=== PATIENT | female | born 1955 | race Hispanic/Latino ===

== ENCOUNTER → 2017-09-21 15:20 | Outpatient (CLI) | payer OTHER, SELFPAY ==
--- NOTE | 2017-09-21 | DI.MG.S_ITS ---
BILATERAL DIGITAL SCREENING MAMMOGRAM 3D/2D WITH CAD: 09/21/2017 CLINICAL: Routine screening. Comparison is made to exams dated: 09/08/2016 mammogram, 08/28/2014 mammogram, and 08/01/2013 mammogram - [facility]. There are scattered fibroglandular elements in both breasts. Current study was also evaluated with a Computer Aided Detection (CAD) system. There are benign vascular calcifications in both breasts. There is a mole marker on the right breast. No significant masses, calcifications, or other findings are seen in either breast. There has been no significant interval change. IMPRESSION: BENIGN There is no mammographic evidence of malignancy. A 1 year screening mammogram is recommended. This exam was interpreted at Station ID: [id number]. NOTE: For mammograms, a report in lay terms will be sent to the patient. Approximately 15% of breast malignancies will not be visualized mammographically. In the management of a palpable breast mass, a negative mammogram must not discourage biopsy of a clinically suspicious lesion. Electronically Signed By: Shemar ceron/breanne:09/21/2017 19:25:03 letter sent: Normal Exam ACR BI-RADS Category 2: Benign Finding(s) 3342F
== END ==
PROVIDERS: PCP Family Medicine; Visit Provider Family Medicine
DX: Z12.31 Encounter for screening mammogram for malignant neoplasm of breast (principal)
CPT/HCPCS: 77063; 77067

== ENCOUNTER → 2018-09-23 07:50 | Outpatient (CLI) | payer OTHER, SELFPAY ==
--- NOTE | 2018-09-23 | DI.MG.S_ITS ---
BILATERAL DIGITAL SCREENING MAMMOGRAM 3D/2D WITH CAD: 09/23/2018 CLINICAL: Routine screening. Comparison is made to exams dated: 09/21/2017 mammogram, 09/08/2016 mammogram, and 08/28/2014 mammogram - [facility]. There are scattered fibroglandular elements in both breasts. Current study was also evaluated with a Computer Aided Detection (CAD) system. There are benign vascular calcifications in both breasts. No significant masses, calcifications, or other findings are seen in either breast. There has been no significant interval change. IMPRESSION: There is no mammographic evidence of malignancy. A 1 year screening mammogram is recommended. This exam was interpreted at Station ID: [id number]. NOTE: For mammograms, a report in lay terms will be sent to the patient. Approximately 15% of breast malignancies will not be visualized mammographically. In the management of a palpable breast mass, a negative mammogram must not discourage biopsy of a clinically suspicious lesion. Electronically Signed By: Mabel davila/breanne:09/23/2018 08:50:19 letter sent: Normal Exam ACR BI-RADS Category 2: Benign Finding(s) 3342F
== END ==
PROVIDERS: PCP Family Medicine; Visit Provider Family Medicine
DX: Z12.31 Encounter for screening mammogram for malignant neoplasm of breast (principal)
CPT/HCPCS: 77063; 77067

== ENCOUNTER → 2019-07-03 08:29 | Outpatient (CLI) | payer OTHER, SELFPAY ==
--- NOTE | 2019-07-03 08:33 | DI.RAD.S_ITS ---
PROCEDURE: FL SHOULDER INJECTION MR/CT LT INDICATIONS: Strain of muscle(s) and tendon(s) of the rotator cuff TECHNIQUE: The indications, alternatives, benefits, risks, and complications of the procedure were explained to the patient. Written informed consent was obtained and placed in the chart. The shoulder was examined fluoroscopically and a site for needle placement chosen for entry into the glenohumeral joint from an anterior approach. The skin was prepped and draped in a sterile fashion, and 1% lidocaine infiltrated from skin down to joint capsule. A spinal needle was inserted into the glenohumeral joint, and a small amount of iodinated contrast media injected to confirm intra-articular placement of the needle tip. This was followed by approximately 12 mL dilute solution of a gadolinium containing MR contrast agent. The needle was removed and a dressing was applied. The patient was given postprocedural instructions and sent to the MR suite for MR imaging. FINDINGS: A single fluoroscopic spot image demonstrates intra-articular location of injected iodinated contrast. IMPRESSION: Successful fluoroscopically guided administration of dilute Gadolinium solution into the shoulder joint for MR arthrogram. Dictated by: Frances Hubbard M.D. on 07/03/2019 at 9:42 Approved by: Frances Hubbard M.D. on 07/03/2019 at 9:42
--- NOTE | 2019-07-03 08:33 | DI.MRI.S_ITS ---
PROCEDURE: MR SHOULDER LT W CON INDICATIONS: Strain of muscle(s) and tendon(s) of the rotator c TECHNIQUE: After the administration of 12 mL of dilute intra-articular Gadolinium contrast, oblique coronal T1 and T2 spin echo with fat saturation, oblique sagittal T1 spin echo with and without fat saturation, oblique sagittal T2 fast spin echo with fat saturation, axial T1 spin echo with fat saturation through the shoulder. COMPARISON: [facility], MR, MR SHOULDER LEFT WITHOUT CONTRAST, 07/25/2018, 16:33. FINDINGS: Image quality: Excellent. Rotator cuff: There is an intermediate grade, partial, bursal surface tear of the supraspinatus tendon (series 8, image 12). The supraspinatus tendon is thickened with increased internal signal compatible with tendinosis. The infraspinatus, and subscapularis tendons appear intact throughout. No rotator cuff muscle atrophy on sagittal images. Bones and bursae: Postsurgical changes compatible with distal acromioplasty noted. No bone marrow contusions or fractures. Capsule and soft tissues: The labrum and glenohumeral ligaments appear intact. The middle glenohumeral ligament is thickened with mildly hypoplastic anterior-superior labrum with compatible with Mary complex. The long head of the biceps tendon demonstrates normal location and morphology. The rotator interval is enlarged with thickened synovium compatible with synovitis.. The coracohumeral ligament is of normal thickness. No intra-articular bodies. IMPRESSION: 1. Status post distal acromioplasty. 2. Intermediate grade, partial, bursal surface supraspinatus tendon tear. 3. Enlarged rotator interval with synovitis. Dictated by: Belia Sky MD, PhD on 07/03/2019 at 13:07 Approved by: Belia Sky MD, PhD on 07/04/2019 at 12:23
== END ==
PROVIDERS: PCP Family Medicine; Referring Provider Orthopaedic Surgery; Visit Provider Orthopaedic Surgery
DX: S46.012A Strain of muscle(s) and tendon(s) of the rotator cuff of left shoulder, initial encounter (principal); M65.812 Other synovitis and tenosynovitis, left shoulder
CPT/HCPCS: 23350; 73222; 77002

== ENCOUNTER → 2019-12-15 17:37 | Outpatient (CLI) | payer OTHER, SELFPAY ==
--- NOTE | 2019-12-15 | DI.MG.S_ITS ---
BILATERAL DIGITAL SCREENING MAMMOGRAM 3D/2D WITH CAD: 12/15/2019 CLINICAL: Routine screening. Comparison is made to exams dated: 09/23/2018 mammogram, 09/21/2017 mammogram, and 09/08/2016 mammogram - [facility]. There are scattered fibroglandular elements in both breasts. Current study was also evaluated with a Computer Aided Detection (CAD) system. There are benign vascular calcifications in both breasts. No significant masses, calcifications, or other findings are seen in either breast. There has been no significant interval change. IMPRESSION: BENIGN There is no mammographic evidence of malignancy. A 1 year screening mammogram is recommended. This exam was interpreted at Station ID: [id number]. NOTE: For mammograms, a report in lay terms will be sent to the patient. Approximately 15% of breast malignancies will not be visualized mammographically. In the management of a palpable breast mass, a negative mammogram must not discourage biopsy of a clinically suspicious lesion. Electronically Signed By: Aaliyah bauer/breanne:12/16/2019 08:43:02 letter sent: Normal Exam ACR BI-RADS Category 2: Benign Finding(s) 3342F
== END ==
PROVIDERS: PCP Family Medicine; Referring Provider Student in an Organized Health Care Education/Training Program; Visit Provider Student in an Organized Health Care Education/Training Program
DX: Z12.31 Encounter for screening mammogram for malignant neoplasm of breast (principal)
CPT/HCPCS: 77063; 77067

== ENCOUNTER → 2020-04-14 14:06 | Outpatient (CLI) | payer OTHER, SELFPAY ==
--- NOTE | 2020-04-14 | DI.RAD.S_ITS ---
PROCEDURE: XR LUMBAR SPINE 2-3V INDICATIONS: LUMBAR RADICULOPATHY TECHNIQUE: 3 views of the lumbar spine were acquired. COMPARISON: [facility], CR, L-SPINE 2-3 VIEWS, 08/06/2015, 15:47. [facility], CR, L-SPINE 2-3 VIEWS, 01/15/2012, 17:37. FINDINGS: Bones: 5 [id number] vertebrae are present. There is normal bony alignment. No vertebral body compression fractures. No suspicious bony lesions. Degenerative disc disease and facet osteoarthritis is moderately severe at L4-5 allowing grade 2 anterolisthesis of L4 on L5 to a slightly greater degree than what was present on comparison study from 01/15/12. Soft tissues: Overlying bowel gas pattern is normal. No suspicious soft tissue calcifications. IMPRESSION: Mild interval worsening of degenerative disc disease and facet osteoarthritis over the lower lumbosacral spine from L3 through S1 and most pronounced at L4-L5 where grade 2 anterolisthesis has mildly worsened from 2011. Dictated by: José Hinson M.D. on 04/14/2020 at 14:51 Approved by: José Hinson M.D. on 04/14/2020 at 14:52
== END ==
PROVIDERS: PCP Student in an Organized Health Care Education/Training Program; Referring Provider Student in an Organized Health Care Education/Training Program; Visit Provider Student in an Organized Health Care Education/Training Program
DX: M51.16 Intervertebral disc disorders with radiculopathy, lumbar region (principal); M51.17 Intervertebral disc disorders with radiculopathy, lumbosacral region; M47.26 Other spondylosis with radiculopathy, lumbar region; M47.27 Other spondylosis with radiculopathy, lumbosacral region; M43.16 Spondylolisthesis, lumbar region
CPT/HCPCS: 72100

== ENCOUNTER → 2020-05-17 09:48 | Outpatient (CLI) | payer MEDICARE, SELFPAY ==
[2020-05-17] MEDS: COVID-19 VACC, Ad26(JANSSEN)/PF 0.5 ML IM (10:04)
== END ==
PROVIDERS: PCP Student in an Organized Health Care Education/Training Program; Visit Provider Internal Medicine
DX: Z23 Encounter for immunization (principal)
CPT/HCPCS: 0031A; 91303

== ENCOUNTER → 2020-06-28 09:40 | Outpatient (CLI) | payer OTHER, SELFPAY | PROVIDERS: PCP Student in an Organized Health Care Education/Training Program; Referring Provider Student in an Organized Health Care Education/Training Program; Visit Provider Student in an Organized Health Care Education/Training Program | DX: M85.851 Other specified disorders of bone density and structure, right thigh (principal); Z78.0 Asymptomatic menopausal state | CPT/HCPCS: 77080 ==

== ENCOUNTER → 2020-09-22 09:23 | Outpatient (CLI) | payer OTHER, SELFPAY ==
[2020-09-22 12:00] LABS: COVID19 -Nasal RAPID Negative (Negative)
== END ==
PROVIDERS: PCP Student in an Organized Health Care Education/Training Program; Referring Provider Physician Assistant; Visit Provider Physician Assistant
DX: Z01.812 Encounter for preprocedural laboratory examination (principal); Z20.822 Contact with and (suspected) exposure to COVID-19; M54.16 Radiculopathy, lumbar region; M43.16 Spondylolisthesis, lumbar region
CPT/HCPCS: 87635; 99214; C9803

== ENCOUNTER 2020-09-24 13:32 | Day surgery (SDC) | payer OTHER, SELFPAY ==
--- NOTE | 2020-09-24 12:30 | PM.HP.1 ---
History of Present Illness History of Present Illness Date Patient Seen: 09/24/20 Chief complaint: SDC Narrative: 65 year old female comes in today for consideration of a screening colonoscopy. This is her second colonoscopy. First colonoscopy approximately 8+ years ago, reportedly normal, results not available at time of dictation. There have been no lower GI symptoms suggesting disease such as change in bowel habits, bleeding, abdominal pain or anemia. There's been no family history of colon cancer or colon polyps. Overall health issues have been stable, including no major cardiac events for at least 6 weeks. PCP: Dr. Waldrop Past Medical History: Hyperlipidemia Sciatica Grand multipara with 9 vaginal deliveries EGD Depression Spinal stenosis, lumbar Formula stenosis, lumbar Dry eye syndrome Past Surgical History: Shoulder surgery x 2, 2018, 2019 Family History: Father - age 70 Mother - age 100 15 siblings Sister - cancer ( unsure of type) Social History: Marital Status - Occupation - retired, [employer] 9, [employer] 9 Alcohol drinks/day: 0 Caffeine use/day: 0 Guns in home: no Sun Exposure: rarely Seat Belt Use: yes Smoking Status: never smoker Drug Use: never HIV High Risk Behavior: no Patient History Medical History History of environmental allergies History of hyperlipidemia History of osteoarthritis History of TB (tuberculosis) Lumbar disc disease Lumbar radiculopathy Peripheral neuropathy Spondylolisthesis at L4-L5 level Surgical History History of shoulder surgery Family & Social History Family History Mother Stroke Father No problems noted. Brother No problems noted. Brother No problems noted. Sister Cancer Sister No problems noted. Sister No problems noted. Brother No problems noted. Sister No problems noted. Sister No problems noted. Sister No problems noted. Sister No problems noted. Sister No problems noted. Tobacco & Substance use: Smoking Status Never smoker alcohol intake never Meds Home Medications and Allergies Home Medications Medication Instructions Recorded Confirmed Type simvastatin 40 mg tablet 40 mg PO DAILY #30 tab 03/30/20 09/22/20 Rx gabapentin 300 mg capsule 300 mg PO .COMPLEX #90 cap 09/22/20 09/22/20 Rx ibuprofen 200 mg tablet (Advil) 200 mg PO Q6H PRN 09/22/20 09/22/20 History methylprednisolone 4 mg tablets in See Rx Instructions PO PER PKG DIR 09/22/20 09/22/20 Rx a dose pack (Medrol (Vijay)) #21 ea Allergies Allergy/AdvReac Type Severity Reaction Status Date / Time No Known Drug Allergies Allergy Verified 09/22/20 10:21 Review of Systems Review of Systems Narrative: Ten point review systems completed and found to be noncontributory except for items mentioned in the HPI. Assessment & Plan Assessment & Plan narrative: 1. Screening for colon cancer Plan for colonoscopy. The nature and character of the procedure as well as anticipated results were discussed. The possibility of not completing the procedure was also discussed. Possible complications including aspiration pneumonia, bleeding, perforation and reaction to medications either for sedation or preparation and missed lesions were discussed. Questions were answered and proceeding to the colonoscopy was elected. Informed consent signed. I sincerely appreciate the referral allowing me to participate in this patient's care. Please contact me with any questions or concerns.
--- NOTE | 2020-09-24 12:33 | PM.OP.ENDO ---
Operative Date/Time/Diagnoses Date of procedure: 09/24/20 Procedure Notes SCOAP/Timeout: 2:36 p.m. Procedure in detail: ENDOSCOPIST: Yasmin Waldrop MD Sedation RN: Nikia Hussein RN Sedation start time: 2:37 p.m. Sedation end time: 3:03 p.m. PROCEDURE: Colonoscopy INDICATIONS: 1. Screening for colon cancer MEDICATION: Levsin 0.125 mg sublingual, incremental doses of Versed and fentanyl until appropriate level sedation achieved. ASA CLASS: 2 CECAL WITHDRAWAL TIME: 15 minutes COMPLICATIONS: None. EXTENT OF PROCEDURE: Cecum. QUALITY OF PREP: Fair with portions of liquid stool. PROCEDURE: Prior to insertion of the colonoscope, a digital rectal examination was accomplished with circumferential palpation of the distal rectal mucosa without significant findings being noted. The high-definition colonoscope was passed into the rectum in the usual fashion and advanced over to the cecum without difficulty. The ileocecal valve, appendiceal stoma, and medial wall all could be inspected and no abnormalities were seen. ASCENDING COLON: As the colonoscope was withdrawn, care was taken to expose and inspect the haustral folds and no abnormalities were seen. HEPATIC FLEXURE: Normal, no polyps, diverticula or other abnormalities. TRANSVERSE COLON: Normal, no polyps, diverticula or other abnormalities. DESCENDING COLON: Normal, no polyps, diverticula or other abnormalities. SIGMOID COLON: Normal, no polyps, diverticula or other abnormalities. RECTUM: Normal. J maneuver was produced. There was no significant perianal disease. The J maneuver was broken. The remainder of the rectum was inspected and there was no external hemorrhoid disease. The scope was withdrawn. IMPRESSION: 1. Normal colonoscopy PLAN: 1. Repeat colonoscopy 10 years. The possibility of a missed lesion including a malignancy has been discussed with the patient previously. Potential alarm symptoms have been discussed and should be reported immediately.
[2020-09-24] MEDS: LACTATED RINGERS 1,000 ML 200 ML IV (14:05)
[2020-09-24] MEDS: HYOSCYAMINE 0.125 MG TABLET PO (14:08)
[2020-09-24 14:12] VITALS: BP 123/77; PULSE 58; RESP 16; TEMP 36.2; O2SAT 98; BMI 34.3
[2020-09-24] MEDS: fentaNYL 250 MCG/5 ML INJ IV (14:37)
[2020-09-24] MEDS: MIDAZOLAM 5 MG/5 ML VIAL IV (14:40)
[2020-09-24 15:07] VITALS: BP 115/64; PULSE 61; RESP 16; TEMP 36.4; O2SAT 100
[2020-09-24 15:12] VITALS: BP 105/58; PULSE 79; RESP 16; O2SAT 97
[2020-09-24 15:17] VITALS: BP 105/58; PULSE 59; RESP 20; O2SAT 98
[2020-09-24 16:00] VITALS: BP 124/99; PULSE 58; RESP 14; TEMP 36.6; O2SAT 99
== END 2020-09-24 16:00 | disposition home or self-care (01) ==
PROVIDERS: PCP Student in an Organized Health Care Education/Training Program; Referring Provider Student in an Organized Health Care Education/Training Program; Visit Provider Student in an Organized Health Care Education/Training Program
PROC: 0DJD8ZZ Inspection of Lower Intestinal Tract, Via Natural or Artificial Opening Endoscopic (ICD-10-PCS; CPT 45378; principal; 2020-09-24 14:30)
DX: Z12.11 Encounter for screening for malignant neoplasm of colon (principal); E78.5 Hyperlipidemia, unspecified
CPT/HCPCS: G0121; J2250; J3010

== ENCOUNTER → 2020-10-05 08:12 | Outpatient (CLI) | payer OTHER, MEDICARE, SELFPAY ==
[2020-10-05 12:42] LABS: COVID19 -Nasal RAPID Negative (Negative)
== END ==
PROVIDERS: PCP Student in an Organized Health Care Education/Training Program; Referring Provider Physical Medicine & Rehabilitation; Visit Provider Physical Medicine & Rehabilitation
DX: Z20.822 Contact with and (suspected) exposure to COVID-19 (principal)
CPT/HCPCS: 87635; C9803

== ENCOUNTER 2020-10-07 15:27 | Outpatient (CLI) | payer OTHER, SELFPAY ==
[2020-10-07] VITALS (8 sets, daily range): BP systolic 123–155; BP diastolic 59–83; PULSE 57–72; RESP 12–22; TEMP 36.4–36.6; O2SAT 97–100
--- NOTE | 2020-10-07 15:32 | DI.RAD.S_ITS ---
PROCEDURE: PAIN L/S TRANSFORAMINAL INJECT INDICATIONS: SPONDYLOSIS COMPARISON: None. FINDINGS: Fluoroscopic spot filming was performed to verify placement of spinal needles at the left L4-L5 level(s), as labeled on the films. Appropriate location(s) of the needle tip(s) was confirmed by injection of iodinated contrast. IMPRESSION: Successful needle tip localization at the left L4-L5 neural foramen for transforaminal epidural steroid injection. Dictated by: José Hinson M.D. on 10/07/2020 at 16:37 Approved by: José Hinson M.D. on 10/07/2020 at 16:37
[2020-10-07] MEDS: MIDAZOLAM 5 MG/5 ML VIAL IV (15:56)
[2020-10-07] MEDS: IOPAMIDOL 15 ML VIAL 3 ML INJ (15:58)
[2020-10-07] MEDS: BETAMETHASONE 30 MG/5 ML MDV 6 MG INJ (15:58)
[2020-10-07] MEDS: DEXAMETHASONE 10 MG/ML VIAL 20 MG INJ (15:58)
[2020-10-07] MEDS: BUPIVACAINE 0.25% (PF) VIAL 2 ML INJ (15:58)
--- NOTE | 2020-10-07 16:07 | P.PCN_ITS ---
Date/Time/Diagnoses Date of procedure: 10/07/20 Time of procedure: 16:07 Pre-procedure diagnosis: 1. FORAMINAL STENOSIS WITH LE SYMPTOMS Post-procedure diagnosis: same Procedure Notes Procedure: 1. FLUOROSCOPICALLY GUIDED CONTRAST CONTROLLED TRANSFORAMINAL EPIDURAL STEROID INJECTION - LEFT L4/5 Indications: King is referred by Dr. Waldrop for treatment of Foraminal Stenosis with Left LE Symptoms Physician: Osvaldo Burden Total Fluoroscopy time (seconds): 7 Total sedation minutes: 8 Complications: none Procedure in detail & Post-procedure care: FINDINGS Foraminal Nerve Root Compression secondary to disc disease and facet hypertrophy DESCRIPTION OF PROCEDURE Following review of allergy and review of potential side effects and complications, including, but not necessarily limited to, infection, allergic reaction, local tissue breakdown, stroke, temporary or permanent nerve injury, paralysis, and possible , the patient indicated that the patient understood and agreed to proceed. An informed consent document was signed by the patient, witnessed by a nurse, and placed in the patient's chart. Additionally, other treatment options including medications, modalities, and physical therapy were reviewed with the patient. After review of previous anaesthesic history and IV conscious sedation the patient was deemed safe to proceed with today?s procedure with IV conscious sedation as ASA class II designation. Safety time-out was performed to confirm patient ID, procedure to be performed and site of procedure. IV sedation was accomplished with a combination of 2mg of Versed administered by the RN after DO order, titrated to patient comfort during the course of the procedure while the patient remained responsive to all verbal commands In the prone position following sterile prep and drape of the lumbar region, the left L4/5 posterior neuroforamen was identified fluoroscopically. The skin was anesthetized via a 25-gauge 1.5-inch needle with 1% lidocaine solution. At this point, a 25-gauge 3.5-inch spinal needle was atraumatically introduced and advanced under fluoroscopic guidance through the posterior left L4/5 neuroforamen to approximately the anterior aspect of the canal. Depth was confirmed on lateral view. Following negative aspiration, injection of approximately 1.5 cc of Isovue 200 under live fluoroscopy in the AP view confirmed excellent flow along the nerve root, into the epidural space without vascular or intrathecal uptake observed Radiological data, including multiple fluoroscopic views of the lumbosacral spine, reveal a spinal needle at the left L4/5 posterior neuroforamen. Subsequent views show flow of contrast material flowing superiorly and inferiorly along the nerve root confirming epidural flow. Subsequently, a test dose of 1.5 cc of 1% lidocaine solution was administered and patient was observed for two minutes for signs or symptoms of complications, including abdominal pain, shortness of breath, bilateral upper or lower extremity weakness, nausea and vomiting, prior to steroid injection. At this point, a total of 3cc or 20mg of dexamethasone and 6mg of betamethasone was injected without incident. The procedure tolerated the procedure well without signs or symptoms of complications prior to transfer to the recovery area continued monitoring without incident. The patient was then transferred to the recovery area where they were observed for an appropriate time after the injection. The patient reported a VAS score of 7 prior to the procedure and a post- procedure VAS of 0. POST OP INSTRUCTIONS The patient was provided a Pain Log to continue to record their response to the target-specific procedure prior to follow-up visit with their referring physician. Additionally, specific post-injection care instructions and a contact number to our office were provided if concerns arise regarding possible complications associated with the procedure are suspected.
== END 2020-10-07 16:32 | disposition home or self-care (01) ==
LOC: RAD 15:31
PROVIDERS: PCP Student in an Organized Health Care Education/Training Program; Referring Provider Physical Medicine & Rehabilitation; Visit Provider Physical Medicine & Rehabilitation
DX: M48.061 Spinal stenosis, lumbar region without neurogenic claudication (principal); M51.16 Intervertebral disc disorders with radiculopathy, lumbar region
CPT/HCPCS: 64483; J0702; J1100; J2250; J3010

== ENCOUNTER → 2020-12-16 14:38 | Outpatient (CLI) | payer OTHER, SELFPAY ==
--- NOTE | 2020-12-16 14:41 | DI.MG.S_ITS ---
BILATERAL DIGITAL SCREENING MAMMOGRAM 3D/2D WITH CAD: 12/16/2020 CLINICAL: Routine screening. Comparison is made to exams dated: 12/15/2019 mammogram, 09/23/2018 mammogram, and 09/21/2017 mammogram - [facility]. There are scattered fibroglandular elements in both breasts. Current study was also evaluated with a Computer Aided Detection (CAD) system. There are benign vascular calcifications in both breasts. No significant masses, calcifications, or other findings are seen in either breast. There has been no significant interval change. IMPRESSION: BENIGN There is no mammographic evidence of malignancy. A 1 year screening mammogram is recommended. This exam was interpreted at Station ID: [id number]. NOTE: For mammograms, a report in lay terms will be sent to the patient. Approximately 15% of breast malignancies will not be visualized mammographically. In the management of a palpable breast mass, a negative mammogram must not discourage biopsy of a clinically suspicious lesion. Electronically Signed By: Brandin marc/breanne:12/16/2020 16:11:24 letter sent: Normal Exam ACR BI-RADS Category 2: Benign Finding(s) 3342F
== END ==
PROVIDERS: PCP Student in an Organized Health Care Education/Training Program; Referring Provider Student in an Organized Health Care Education/Training Program; Visit Provider Student in an Organized Health Care Education/Training Program
DX: Z12.31 Encounter for screening mammogram for malignant neoplasm of breast (principal)
CPT/HCPCS: 77063; 77067

== ENCOUNTER → 2021-08-02 11:40 | Outpatient (CLI) | payer OTHER, SELFPAY ==
--- NOTE | 2021-08-02 11:43 | DI.RAD.S_ITS ---
PROCEDURE: XR CHEST 2V INDICATIONS: Mastodynia TECHNIQUE: 2 views of the chest were acquired. COMPARISON: [facility], , CHEST 2 VIEW, 03/31/2017, 11:13. FINDINGS: Surgical changes and devices: None. Lungs and pleura: Lungs are clear. No pleural effusions or pneumothorax. Mediastinum: Mediastinal contours are normal. Heart size is normal. Bones and chest wall: No suspicious bony abnormalities. Soft tissues appear unremarkable. IMPRESSION: No acute pulmonary process. Dictated by: Betzy Merida M.D. on 08/02/2021 at 13:01 Approved by: Betzy Merida M.D. on 08/02/2021 at 13:01
== END ==
PROVIDERS: PCP Student in an Organized Health Care Education/Training Program; Referring Provider Student in an Organized Health Care Education/Training Program; Visit Provider Student in an Organized Health Care Education/Training Program
DX: N64.4 Mastodynia (principal)
CPT/HCPCS: 71046

== ENCOUNTER → 2021-09-19 10:19 | Outpatient (CLI) | payer OTHER, SELFPAY ==
--- NOTE | 2021-09-19 | DI.MG.S_ITS ---
UNILATERAL RIGHT DIGITAL DIAGNOSTIC MAMMOGRAM 3D/2D: 09/19/2021 CLINICAL: Right breast pain. Comparison is made to exams dated: 12/16/2020 mammogram, 12/15/2019 mammogram, 09/23/2018 mammogram, and 09/21/2017 mammogram - [facility]. There are scattered fibroglandular elements in right breast. No significant masses, calcifications, or other findings are seen in the breast. Benign vascular calcifications. IMPRESSION: BENIGN There is no mammographic evidence of malignancy. No mass or suspicious calcifications in the region of diffuse breast pain. Exam findings were conveyed to the patient. Patient is advised to monitor for significant change. Clinical follow-up as needed. Return to annual mammogram screening schedule is recommended. Future imaging is recommended as follows: 12/17/2021 screening mammogram. Based on the Tyrer Cuzick model (a risk assessment model) the patient's lifetime risk is 3.4% and her 10 year risk is 1.8%. According to the ACR, ACS, and NCCN guidelines, an annual breast MRI exam along with mammogram is recommended if the patient's lifetime risk is 20% or greater. This exam was interpreted at Station ID: [id number]. NOTE: For mammograms, a report in lay terms will be sent to the patient. Approximately 15% of breast malignancies will not be visualized mammographically. In the management of a palpable breast mass, a negative mammogram must not discourage biopsy of a clinically suspicious lesion. Electronically Signed By: Raghu Benjamin M.D. slc/:09/19/2021 11:46:51 letter sent: Normal Exam ACR BI-RADS Category 2: Benign Finding(s) 3342F
== END ==
PROVIDERS: PCP Student in an Organized Health Care Education/Training Program; Referring Provider Student in an Organized Health Care Education/Training Program; Visit Provider Student in an Organized Health Care Education/Training Program
DX: N64.4 Mastodynia (principal)
CPT/HCPCS: 77065; G0279

== ENCOUNTER → 2021-12-17 11:11 | Outpatient (CLI) | payer OTHER, SELFPAY ==
--- NOTE | 2021-12-17 11:12 | DI.MG.S_ITS ---
BILATERAL DIGITAL SCREENING MAMMOGRAM 3D/2D WITH CAD: 12/17/2021 CLINICAL: Routine screening. Comparison is made to exams dated: 09/19/2021 mammogram, 12/16/2020 mammogram, 12/15/2019 mammogram, and 09/23/2018 mammogram - [facility]. There are scattered areas of fibroglandular density in both breasts (category b / 25%-50% glandular tissue). Current study was also evaluated with a Computer Aided Detection (CAD) system. There are benign vascular calcifications in both breasts. No significant masses, calcifications, or other findings are seen in either breast. There has been no significant interval change. IMPRESSION: BENIGN There is no mammographic evidence of malignancy. A 1 year screening mammogram is recommended. Based on the Tyrer Cuzick model (a risk assessment model) the patient's lifetime risk is 3.4% and her 10 year risk is 1.8%. According to the ACR, ACS, and NCCN guidelines, an annual breast MRI exam along with mammogram is recommended if the patient's lifetime risk is 20% or greater. This exam was interpreted at Station ID: [id number]. NOTE: For mammograms, a report in lay terms will be sent to the patient. Approximately 15% of breast malignancies will not be visualized mammographically. In the management of a palpable breast mass, a negative mammogram must not discourage biopsy of a clinically suspicious lesion. Electronically Signed By: Aaliyah bauer/breanne:12/19/2021 08:55:15 letter sent: Normal Exam ACR BI-RADS Category 2: Benign Finding(s) 3342F
== END ==
PROVIDERS: PCP Student in an Organized Health Care Education/Training Program; Referring Provider Family Medicine; Visit Provider Family Medicine
DX: Z12.31 Encounter for screening mammogram for malignant neoplasm of breast (principal)
CPT/HCPCS: 77063; 77067

== ENCOUNTER → 2022-10-16 12:21 | Outpatient (CLI) | payer OTHER, SELFPAY ==
--- NOTE | 2022-10-16 | DI.RAD.S_ITS ---
Bone Density Report Name: LANRE GONZALES ADRIANO Age: 67 Sex: Female Ethnicity: Date of : 1955 Indication: postmenopausal; screening for osteoporosis; Referring Provider: ERIC CHENG Study: Bone densitometry was performed. Exam Date: October 16, 2022 Accession number: [id number] Bone Density: Region BMD T-score Z-score Classification AP Spine(L1-L4) 0.924 -1.1 0.9 Osteopenia Femoral Neck (Left) 0.708 -1.3 0.3 Osteopenia Total Hip (Left) 0.919 -0.2 1.0 Normal Femoral Neck (Right) 0.759 -0.8 0.7 Normal Total Hip (Right) 0.898 -0.4 0.9 Normal Total Hip Mean 0.909 -0.3 1.0 Normal World Health Organization criteria for BMD impression classify patients as: Normal (T-score at or above -1.0), Osteopenia (T-score between -1.0 and -2.5), or Osteoporosis (T-score at or below -2.5). 10-year Fracture Risk(1): Major Osteoporotic Fracture 4.7% Hip Fracture 0.5% Reported Risk Factors: [place] (), Neck BMD=0.708, BMI=34.3 (1) FRAX(R) Version 3.08. Fracture probability calculated for an untreated patient. Fracture probability may be lower if the patient has received treatment. Impression: The patient has low bone mass, based on the Left Femoral Neck T-score. The patient has an estimated ten-year risk of hip fracture of 0.5% and an estimated ten-year risk of major fracture of 4.7%, based on the WHO FRAX algorithm. Discussion: BONE DENSITY IS LOW AT ONE OR MORE SKELETAL SITES. This patient's lowest T-score is low at one or more skeletal sites. It meets the World Health Organization's (WHO) criteria for low bone mass (T-score between -1.0 and -2.5). The patient's 10-year risk of fracture as calculated by FRAX is less than the threshold where pharmacological therapy is recommended by the National Osteoporosis Foundation (NOF). However, all treatment decisions require clinical judgment and consideration of individual patient factors, including patient preferences, comorbidities, previous drug use, risk factors not captured in the FRAX model (e.g., frailty, falls, vitamin D deficiency, increased bone turnover, interval significant decline in bone density) and possible under or overestimation of fracture risk by FRAX. The patient should follow a healthful lifestyle (good nutrition with adequate calcium and vitamin D, and appropriate weight-bearing exercise). Follow-Up: Consider repeating this study in 2 to 3 years to reassess this patient's status, or sooner if there is some new clinical indication. Reported by: JEREMI DEL VALLE M.D. on 10/16/2022 12:50:00 PM.
== END ==
PROVIDERS: PCP Student in an Organized Health Care Education/Training Program; Referring Provider Family Medicine; Visit Provider Family Medicine
DX: Z13.820 Encounter for screening for osteoporosis (principal); Z78.0 Asymptomatic menopausal state; M48.061 Spinal stenosis, lumbar region without neurogenic claudication; I83.92 Asymptomatic varicose veins of left lower extremity; E55.9 Vitamin D deficiency, unspecified; E66.9 Obesity, unspecified; L21.9 Seborrheic dermatitis, unspecified; L25.9 Unspecified contact dermatitis, unspecified cause; E78.00 Pure hypercholesterolemia, unspecified; H91.90 Unspecified hearing loss, unspecified ear; H04.123 Dry eye syndrome of bilateral lacrimal glands; Z00.00 Encounter for general adult medical examination without abnormal findings; M85.852 Other specified disorders of bone density and structure, left thigh; M47.817 Spondylosis without myelopathy or radiculopathy, lumbosacral region
CPT/HCPCS: 77080

== ENCOUNTER → 2023-01-08 17:14 | Outpatient (CLI) | payer OTHER, SELFPAY ==
--- NOTE | 2023-01-08 17:16 | DI.MG.S_ITS ---
BILATERAL DIGITAL SCREENING MAMMOGRAM 3D/2D WITH CAD: 01/08/2023 CLINICAL: Routine screening. Comparison is made to exams dated: 12/17/2021 mammogram, 12/16/2020 mammogram, and 12/15/2019 mammogram - [facility]. There are scattered areas of fibroglandular density in both breasts (category b / 25%-50% glandular tissue). Current study was also evaluated with a Computer Aided Detection (CAD) system. There are benign vascular calcifications in both breasts. No significant masses, calcifications, or other findings are seen in either breast. There has been no significant interval change. IMPRESSION: BENIGN There is no mammographic evidence of malignancy. A 1 year screening mammogram is recommended. Based on the Tyrer Cuzick model (a risk assessment model) the patient's lifetime risk is 3.2% and her 10 year risk is 1.8%. According to the ACR, ACS, and NCCN guidelines, an annual breast MRI exam along with mammogram is recommended if the patient's lifetime risk is 20% or greater. This exam was interpreted at Station ID: [id number]. NOTE: For mammograms, a report in lay terms will be sent to the patient. Approximately 15% of breast malignancies will not be visualized mammographically. In the management of a palpable breast mass, a negative mammogram must not discourage biopsy of a clinically suspicious lesion. Electronically Signed By: Raghu michel/breanne:01/09/2023 12:45:53 letter sent: Normal Exam ACR BI-RADS Category 2: Benign Finding(s) [id number]
== END ==
PROVIDERS: PCP Student in an Organized Health Care Education/Training Program; Referring Provider Family Medicine; Visit Provider Family Medicine
DX: Z12.31 Encounter for screening mammogram for malignant neoplasm of breast (principal)
CPT/HCPCS: 77063; 77067

== ENCOUNTER → 2023-07-09 09:12 | Outpatient (CLI) | payer OTHER, SELFPAY ==
--- NOTE | 2023-07-09 09:19 | DI.RAD.S_ITS ---
PROCEDURE: XR LUMBAR SPINE MIN 4V INDICATIONS: BACK PAIN TECHNIQUE: 5 views of the lumbar spine were acquired, including bilateral oblique views. COMPARISON: [facility], CR, XR LUMBAR SPINE 2-3V, 04/14/2020, 14:13. FINDINGS: Bones: 5 nonrib-bearing vertebrae are present. There is 1 cm anterolisthesis of L4 on L5. Degenerative endplate changes throughout lumbar spine is seen more notably at L4-5 and L5-S1 levels. No vertebral body compression fractures. No suspicious bony lesions. Soft tissues: Overlying bowel gas pattern is normal. No suspicious soft tissue calcifications. Oblique images: No pars defects. IMPRESSION: 1 cm anterolisthesis of L4 on L5. No acute compression fracture. Degenerative disc disease throughout lumbar spine. No gross pars defects. Dictated by: Eddie Freeman M.D. on 07/09/2023 at 10:25 Approved by: Eddie Freeman M.D. on 07/09/2023 at 10:26
== END ==
PROVIDERS: PCP Family Medicine; Referring Provider Physical Medicine & Rehabilitation; Visit Provider Physical Medicine & Rehabilitation
DX: M43.16 Spondylolisthesis, lumbar region (principal); M51.16 Intervertebral disc disorders with radiculopathy, lumbar region; M51.17 Intervertebral disc disorders with radiculopathy, lumbosacral region
CPT/HCPCS: 72110

== ENCOUNTER 2023-08-09 10:16 | Outpatient (CLI) | payer OTHER, SELFPAY ==
[2023-08-09] VITALS (8 sets, daily range): BP systolic 122–178; BP diastolic 59–80; PULSE 57–99; RESP 15–20; TEMP 36.2; O2SAT 95–100
--- NOTE | 2023-08-09 10:45 | DI.RAD.S_ITS ---
PROCEDURE: PAIN L/S TRANSFORAMINAL INJECT INDICATIONS: Left L4-5 transforaminal PEYTON COMPARISON: [facility], , PAIN L/S TRANSFORAMINAL INJECT, 10/07/2020, 15:58. FINDINGS: Fluoroscopic spot filming was performed to verify placement of spinal needles at the L4-5 level(s), as labeled on the films. Appropriate location(s) of the needle tip(s) was confirmed by injection of iodinated contrast. IMPRESSION: Contrast a needle placement overlying L4-5. Dictated by: Betzy Merida M.D. on 08/09/2023 at 15:25 Approved by: Betzy Merida M.D. on 08/09/2023 at 15:26
--- NOTE | 2023-08-09 11:28 | P.PCN_ITS ---
Date/Time/Diagnoses Date of procedure: 08/09/23 Time of procedure: 11:59 Pre-procedure diagnosis: 1. FORAMINAL STENOSIS WITH LE SYMPTOMS Post-procedure diagnosis: same Procedure Notes Procedure: 1. FLUOROSCOPICALLY GUIDED CONTRAST CONTROLLED TRANSFORAMINAL EPIDURAL STEROID INJECTION - LEFT L4/5 Indications: Jenniffer is referred by Dr. Ortega for treatment of Foraminal Stenosis with Left LE Symptoms Physician: Osvaldo Burden Total Fluoroscopy time (seconds): 13 Total sedation minutes: 10 Complications: none Procedure in detail & Post-procedure care: FINDINGS Foraminal Nerve Root Compression secondary to disc disease and facet hypertrophy DESCRIPTION OF PROCEDURE Following review of allergy and review of potential side effects and complications, including, but not necessarily limited to, infection, allergic reaction, local tissue breakdown, stroke, temporary or permanent nerve injury, paralysis, and possible , the patient indicated that the patient understood and agreed to proceed. An informed consent document was signed by the patient, witnessed by a nurse, and placed in the patient's chart. Additionally, other treatment options including medications, modalities, and physical therapy were reviewed with the patient. After review of previous anaesthesic history and IV conscious sedation the patient was deemed safe to proceed with today?s procedure with IV conscious sedation as ASA class II designation. Safety time-out was performed to confirm patient ID, procedure to be performed and site of procedure. IV sedation was accomplished with a combination of 2mg of Versed administered by the RN after DO order, titrated to patient comfort during the course of the procedure while the patient remained responsive to all verbal commands In the prone position following sterile prep and drape of the lumbar region, the left L4/5 posterior neuroforamen was identified fluoroscopically. The skin was anesthetized via a 25-gauge 1.5-inch needle with 1% lidocaine solution. At this point, a 25-gauge 3.5-inch spinal needle was atraumatically introduced and advanced under fluoroscopic guidance through the posterior left L4/5 neuroforamen to approximately the anterior aspect of the canal. Depth was confirmed on lateral view. Following negative aspiration, injection of approximately 1.5 cc of Isovue 200 under live fluoroscopy in the AP view confirmed excellent flow along the nerve root, into the epidural space without vascular or intrathecal uptake observed Radiological data, including multiple fluoroscopic views of the lumbosacral spine, reveal a spinal needle at the left L4/5 posterior neuroforamen. Subsequent views show flow of contrast material flowing superiorly and inferiorly along the nerve root confirming epidural flow. Subsequently, a test dose of 1.5 cc of 1% lidocaine solution was administered and patient was observed for two minutes for signs or symptoms of complications, including abdominal pain, shortness of breath, bilateral upper or lower extremity weakness, nausea and vomiting, prior to steroid injection. At this point, a total of 2cc or 10mg of dexamethasone and 6mg of betamethasone was injected without incident. The procedure tolerated the procedure well without signs or symptoms of complications prior to transfer to the recovery area continued monitoring without incident. The patient was then transferred to the recovery area where they were observed for an appropriate time after the injection. The patient reported a VAS score of 7 prior to the procedure and a post- procedure VAS of 0. POST OP INSTRUCTIONS The patient was provided a Pain Log to continue to record their response to the target-specific procedure prior to follow-up visit with their referring physician. Additionally, specific post-injection care instructions and a contact number to our office were provided if concerns arise regarding possible complications associated with the procedure are suspected.
[2023-08-09] MEDS: MIDAZOLAM 2 MG/2 ML VIAL IV (11:46)
--- NOTE | 2023-08-09 11:51 | PC.NURSE ---
Patient's daughter Holly accompanied patient into procedure room as online services manager. Holly dressed in appropriate safety gear and sitting in chair during procedure. Dr. Burden verbalized agreement that daughter should remain in room to help interpret.
[2023-08-09] MEDS: iopamidoL 15 ML VIAL 3 ML INJ (11:53)
[2023-08-09] MEDS: BUPIVACAINE 0.25% (PF) VIAL 2 ML INJ (11:54)
[2023-08-09] MEDS: DEXAMETHASONE 10 MG/ML VIAL INJ (11:54)
[2023-08-09] MEDS: BETAMETHASONE 30 MG/5 ML MDV 6 MG INJ (11:54)
== END 2023-08-09 12:19 | disposition home or self-care (01) ==
PROVIDERS: PCP Family Medicine; Referring Provider Physical Medicine & Rehabilitation; Visit Provider Physical Medicine & Rehabilitation
DX: M48.061 Spinal stenosis, lumbar region without neurogenic claudication (principal); M51.16 Intervertebral disc disorders with radiculopathy, lumbar region; M47.26 Other spondylosis with radiculopathy, lumbar region
CPT/HCPCS: 64483; 99152; J0702; J1100; J2250; J3490

== ENCOUNTER 2023-12-13 12:30 | Outpatient (CLI) | payer OTHER, SELFPAY ==
[2023-12-13] VITALS (10 sets, daily range): BP systolic 137–191; BP diastolic 70–87; PULSE 55–64; RESP 16–20; TEMP 36.4; O2SAT 96–100
--- NOTE | 2023-12-13 13:00 | DI.RAD.S_ITS ---
PROCEDURE: PAIN L/S FACET INJ/BLK 1ST ELGIN INDICATIONS: Bilateral L3-L4 L5 medial branch block LA COMPARISON: None. FINDINGS: Fluoroscopic spot filming was performed to verify placement of spinal needles at the bilateral L3, L4, and L5 level(s), as labeled on the films. Appropriate location(s) of the needle tip(s) was confirmed by injection of iodinated contrast. IMPRESSION: Intraoperative fluoroscopy for bilateral medial branch block. Dictated by: Mabel Florian M.D. on 12/13/2023 at 23:06 Approved by: Mabel Florian M.D. on 12/13/2023 at 23:07
[2023-12-13] MEDS: MIDAZOLAM 2 MG/2 ML VIAL IV (13:43)
[2023-12-13] MEDS: BUPIVACAINE 0.5% (PF) 10 ML VIAL 5 ML INJ (13:48)
[2023-12-13] MEDS: LIDOCAINE 1% 20 ML 5 ML INJ (13:48)
[2023-12-13] MEDS: iopamidoL 15 ML VIAL 3 ML INJ (13:48)
--- NOTE | 2023-12-13 14:04 | P.PCN_ITS ---
Date/Time/Diagnoses Date of procedure: 12/13/23 Time of procedure: 14:04 Pre-procedure diagnosis: FACET ARTHROPATHY Post-procedure diagnosis: same Procedure Notes Procedure: 1. BILATERAL L3, L4 AND L5 DIAGNOSTIC MB BLOCKS Indications: Jenniffer is referred by Dr. Ortega for treatment of Bilateral Axial LBP. Physician: Osvaldo Burden Total Fluoroscopy time (seconds): 8 Total sedation minutes: 14 Complications: none Procedure in detail & Post-procedure care: DESCRIPTION OF PROCEDURE Fluoroscopically guided, contrast-controlled bilateral L3, L4 AND L5 medial branch blocks with 0.5cc of 0.5% Marcaine. Following review of allergy and review of potential side effects and complications, including, but not necessarily limited to, infection, allergic reaction, local tissue breakdown, nerve injury, paralysis, stroke and possible , the patient indicated that the patient understood and agreed to proceed. An informed consent document was signed by the patient, witnessed by a nurse, and placed in the patient's chart. After review of previous anaesthesic history and IV conscious sedation the patient was deemed safe to proceed with today's procedure with IV conscious sedation as ASA class II designation. Safety time-out was performed to confirm patient ID, procedure to be performed and site of procedure. IV sedation was accomplished with a combination of 2mg of Versed was administered by the RN after DO order, titrated to patient comfort during the course of the procedure while the patient remained responsive to all verbal commands In the prone position, following sterile prep and drape of the lumbar region, the right L3, L4 AND L5 anatomical location of the medial branch of the dorsal ramus was identified fluoroscopically. Subsequently an anesthetic skin wheal using 1% lidocaine solution was initiated at each of the anatomical spots. Subsequently then a 22-gauge 3.5-inch spinal needle was atraumatically introduced and advanced under fluoroscopic guidance at each of the corresponding sites at the right L3, L4 and L5 MB. After negative aspiration, 0.2cc of Isovue 200 was injected, confirming placement without vascular or intrathecal uptake. Subsequently then 0.5cc of 0.5% Marcaine solution was injected at each of the corresponding sites at the right L3, L4 and L5 medial branch locations. The identical procedure was replicated on the left. The patient tolerated the pro cedure well without signs or symptoms of complications. The patient tolerated the procedure well without signs or symptoms of complications prior to transfer to the recovery area continued monitoring without incident. Post-procedure, the patient was monitored initiating provocative activities to measure the amount of relief from block of the facetogenic pain. The patient reported a VAS of 7 prior to the procedure and a post-procedure VAS of 1. It has been a pleasure to assist in the diagnostic and therapeutic care of your patient. POST OP INSTRUCTIONS The patient was provided with a Pain Log to complete over the next several hours and subsequent days prior to the patient's follow up with the ordering physician. If the patient has application packaging consultant relief to the solution applied, then they may be a candidate for medial branch rhizotomy. The patient is aware, was provided, once again, with a Pain Log and will follow up with the referring physician for review and clinical correlation
== END 2023-12-13 14:20 | disposition home or self-care (01) ==
PROVIDERS: PCP Family Medicine; Referring Provider Physical Medicine & Rehabilitation; Visit Provider Physical Medicine & Rehabilitation
DX: M47.816 Spondylosis without myelopathy or radiculopathy, lumbar region (principal)
CPT/HCPCS: 64491; 64493; 64494; 99152; J2250

== ENCOUNTER → 2023-12-26 10:50 | Outpatient (CLI) | payer OTHER, SELFPAY ==
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
== END ==
PROVIDERS: PCP Family Medicine; Referring Provider Physical Medicine & Rehabilitation; Visit Provider Physical Medicine & Rehabilitation
DX: M47.816 Spondylosis without myelopathy or radiculopathy, lumbar region (principal); M43.16 Spondylolisthesis, lumbar region
CPT/HCPCS: 72110

== ENCOUNTER → 2024-01-17 11:48 | Outpatient (CLI) | payer OTHER, SELFPAY ==
--- NOTE | 2024-01-17 11:49 | DI.MG.S_ITS ---
BILATERAL DIGITAL SCREENING MAMMOGRAM 3D/2D WITH CAD: 01/17/2024 CLINICAL: Routine screening. Comparison is made to exams dated: 01/08/2023 mammogram, 12/17/2021 mammogram, 12/16/2020 mammogram, and 09/19/2021 mammogram - [facility]. There are scattered areas of fibroglandular density (category b / 25%-50% glandular tissue). Current study was also evaluated with a Computer Aided Detection (CAD) system. There are benign vascular calcifications in both breasts. No significant masses, calcifications, or other findings are seen in either breast. There has been no significant interval change. IMPRESSION: BENIGN There is no mammographic evidence of malignancy. A 1 year screening mammogram is recommended. Based on the Tyrer Cuzick model (a risk assessment model) the patient's lifetime risk is 3.1% and her 10 year risk is 1.8%. According to the ACR, ACS, and NCCN guidelines, an annual breast MRI exam along with mammogram is recommended if the patient's lifetime risk is 20% or greater. This exam was interpreted at Station ID: [id number]. NOTE: For mammograms, a report in lay terms will be sent to the patient. Approximately 15% of breast malignancies will not be visualized mammographically. In the management of a palpable breast mass, a negative mammogram must not discourage biopsy of a clinically suspicious lesion. Electronically Signed By: Raghu michel/breanne:01/17/2024 17:49:03 letter sent: Normal Exam ACR BI-RADS Category 2: Benign
== END ==
LOC: MAMMO 11:49
PROVIDERS: PCP Family Medicine; Referring Provider Family Medicine; Visit Provider Family Medicine
DX: Z12.31 Encounter for screening mammogram for malignant neoplasm of breast (principal)
CPT/HCPCS: 77063; 77067

== ENCOUNTER 2024-02-07 10:01 | Outpatient (CLI) | payer OTHER, SELFPAY ==
[2024-02-07] VITALS (9 sets, daily range): BP systolic 120–162; BP diastolic 61–83; PULSE 54–69; RESP 16–20; TEMP 36.5; O2SAT 96–100
--- NOTE | 2024-02-07 10:03 | DI.RAD.S_ITS ---
PROCEDURE: PAIN L/S TRANSFORAM INJECT ELGIN COMPARISON: None. INDICATIONS: LUMBAR ARTHROPATHY FINDINGS: Intraoperative fluoroscopic images shows injection needle placed bilaterally at L3, L4 and L5 levels. Small amount of injected contrast are noted in the above-mentioned levels. IMPRESSION: Fluoro guidance was provided intraoperatively for bilateral L3, L4, and L5 medial branch block performed by ordering physician. Dictated by: Eddie Freeman M.D. on 02/07/2024 at 14:31 Approved by: Eddie Freeman M.D. on 02/07/2024 at 14:32
[2024-02-07] MEDS: MIDAZOLAM 2 MG/2 ML VIAL IV (10:48)
[2024-02-07] MEDS: LIDOCAINE 1% 20 ML 5 ML INJ (10:52)
[2024-02-07] MEDS: LIDOCAINE 2% INJ SDV 5ML 1 ML INJ (10:52)
[2024-02-07] MEDS: iopamidoL 15 ML VIAL 3 ML INJ (10:53)
--- NOTE | 2024-02-07 11:09 | PM.PROC.IR.1 ---
Date/Time/Diagnoses Date of procedure: 02/07/24 Time of procedure: 11:09 Pre-procedure diagnosis: 1. FACET ARTHROPATHY Post-procedure diagnosis: same Procedure Notes Procedure: 1. BILATERAL L3, L4 AND L5 DIAGNOSTIC MB BLOCKS Indications: Jenniffer is referred by Dr. Ortega for treatment of Bilateral Axial LBP. Physician: Osvaldo Burden Total Fluoroscopy time (seconds): 9 Total sedation minutes: 16 Complications: none Procedure in detail & Post-procedure care: DESCRIPTION OF PROCEDURE Fluoroscopically guided, contrast-controlled bilateral L3, L4 AND L5 medial branch blocks with 0.5cc of 2% Lidocaine. Following review of allergy and review of potential side effects and complications, including, but not necessarily limited to, infection, allergic reaction, local tissue breakdown, nerve injury, paralysis, stroke and possible , the patient indicated that the patient understood and agreed to proceed. An informed consent document was signed by the patient, witnessed by a nurse, and placed in the patient's chart. After review of previous anaesthesic history and IV conscious sedation the patient was deemed safe to proceed with today's procedure with IV conscious sedation as ASA class II designation. Safety time-out was performed to confirm patient ID, procedure to be performed and site of procedure. IV sedation was accomplished with a combination of 2mg of Versed was administered by the RN after DO order, titrated to patient comfort during the course of the procedure while the patient remained responsive to all verbal commands In the prone position, following sterile prep and drape of the lumbar region, the right L3, L4 AND L5 anatomical location of the medial branch of the dorsal ramus was identified fluoroscopically. Subsequently an anesthetic skin wheal using 1% lidocaine solution was initiated at each of the anatomical spots. Subsequently then a 22-gauge 3.5-inch spinal needle was atraumatically introduced and advanced under fluoroscopic guidance at each of the corresponding sites at the right L3, L4 and L5 MB. After negative aspiration, 0.2cc of Isovue 200 was injected, confirming placement without vascular or intrathecal uptake. Subsequently then 0.5cc of 2% Lidocaine solution was injected at each of the corresponding sites at the right L3, L4 and L5 medial branch locations. The identical procedure was replicated on the left. The patient tolerated the procedure well without signs or symptoms of complications. The patient tolerated the procedure well without signs or symptoms of complications prior to transfer to the recovery area continued monitoring without incident. Post-procedure, the patient was monitored initiating provocative activities to measure the amount of relief from block of the facetogenic pain. The patient reported a VAS of 7 prior to the procedure and a post-procedure VAS of 1. It has been a pleasure to assist in the diagnostic and therapeutic care of your patient. POST OP INSTRUCTIONS The patient was provided with a Pain Log to complete over the next several hours and subsequent days prior to the patient's follow up with the ordering physician. If the patient has surgical territory manager relief to the solution applied, then they may be a candidate for medial branch rhizotomy. The patient is aware, was provided, once again, with a Pain Log and will follow up with the referring physician for review and clinical correlation
== END 2024-02-07 11:30 | disposition home or self-care (01) ==
PROVIDERS: PCP Family Medicine; Referring Provider Physical Medicine & Rehabilitation; Visit Provider Physical Medicine & Rehabilitation
DX: M47.816 Spondylosis without myelopathy or radiculopathy, lumbar region (principal)
CPT/HCPCS: 64483; 64493; 64494; 64495; 99152; 99153; J2250

== ENCOUNTER → 2024-03-17 08:54 | Outpatient (CLI) | payer OTHER, SELFPAY ==
[2024-03-17 09:45] LABS: COVID-19 CEPHEID 4-PLEX PCR Negative (Negative); Influenza A - CEPHEID Flu A NEGATIVE (NEGATIVE); Influenza B - CEPHEID Flu B NEGATIVE (NEGATIVE); Respiratory Syncytial Virus Negative (Negative)
== END ==
PROVIDERS: PCP Family Medicine; Visit Provider Registered Nurse
DX: R05.1 Acute cough (principal)
CPT/HCPCS: 0241U; 87070

== ENCOUNTER → 2024-03-17 09:06 | Outpatient (CLI) | payer OTHER, SELFPAY ==
--- NOTE | 2024-03-17 09:11 | DI.RAD.S_ITS ---
PROCEDURE: XR CHEST 2V INDICATIONS: shortness of breath TECHNIQUE: 2 views of the chest were acquired. COMPARISON: [facility], MARISEL, XR CHEST 2V, 08/02/2021, 11:31. [facility], , CHEST 2 VIEW, 03/31/2017, 11:13. FINDINGS: Surgical changes and devices: None. Lungs and pleura: Lungs are clear. No pleural effusions or pneumothorax. Mediastinum: Aortic arch calcifications. Mediastinal contours are otherwise normal. Heart size is normal. Bones and chest wall: No suspicious bony abnormalities. Soft tissues appear unremarkable. IMPRESSION: No acute cardiothoracic process. Dictated by: Ash Chase M.D. on 03/17/2024 at 10:03 Approved by: Ash Chase M.D. on 03/17/2024 at 10:03
== END ==
PROVIDERS: PCP Family Medicine; Referring Provider Registered Nurse; Visit Provider Registered Nurse
DX: R06.02 Shortness of breath (principal); R05.1 Acute cough; I70.0 Atherosclerosis of aorta
CPT/HCPCS: 0241U; 71046; 87070

== ENCOUNTER → 2024-03-19 13:10 | Outpatient (CLI) | payer OTHER, SELFPAY ==
--- NOTE | 2024-03-19 13:12 | DI.RAD.S_ITS ---
PROCEDURE: XR CHEST 2V INDICATIONS: COUGH TECHNIQUE: 2 views of the chest were acquired. COMPARISON: [facility], CR, XR CHEST 2V, 03/17/2024, 9:09. FINDINGS: Surgical changes and devices: None. Lungs and pleura: Increased bronchovascular markings in bilateral hilar region are seen with mild bronchial wall thickening. No definite focal infiltrate.. No pleural effusions or pneumothorax. Mediastinum: Mediastinal contours are normal. Heart size is normal. Bones and chest wall: No suspicious bony abnormalities. Soft tissues appear unremarkable. IMPRESSION: Suggestion of reactive airway disease such as bronchitis or viral illness. No definite focal infiltrate. No pleural effusion or pneumothorax. Dictated by: Eddie Freeman M.D. on 03/19/2024 at 16:02 Approved by: Eddie Freeman M.D. on 03/19/2024 at 16:02
== END ==
PROVIDERS: PCP Family Medicine; Referring Provider Family Medicine; Visit Provider Family Medicine
DX: R05.1 Acute cough (principal)
CPT/HCPCS: 71046

== ENCOUNTER → 2024-03-31 09:59 | Outpatient (CLI) | payer OTHER, SELFPAY | LOC: RESP 09:59 | PROVIDERS: PCP Family Medicine; Referring Provider Family Medicine; Visit Provider Family Medicine | DX: R05.1 Acute cough (principal); J98.8 Other specified respiratory disorders; R94.2 Abnormal results of pulmonary function studies | CPT/HCPCS: 94060; 94726; 94729 ==

== ENCOUNTER → 2025-01-21 11:34 | Outpatient (CLI) | payer OTHER, MEDICARE, SELFPAY ==
--- NOTE | 2025-01-21 11:36 | DI.MG.S_ITS ---
MM screening mammo BI: 01/21/2025. BI-RADS: 1 CLINICAL: 70-year old female for bilateral screening mammogram. Tyrer-Cuzick lifetime risk of 2.9%. No personal or first-degree family history of breast cancer. PRIOR EXAMS 01/17/2024, 01/08/2023, 12/17/2021, 09/19/2021. MAMMOGRAPHY TECHNIQUE: 2D and 3D (tomosynthesis) digital mammographic views obtained, with additional images as needed for full coverage. Current study was also evaluated with a Computer Aided Detection (CAD) system. DENSITY B. There are scattered areas of fibroglandular density. MAMMOGRAPHY FINDINGS Bilateral: No suspicious mass, asymmetry, microcalcification, or other abnormality seen. IMPRESSION: * No evidence of malignancy. RECOMMENDATIONS Bilateral * Annual screening mammography. OVERALL ASSESSMENT CATEGORY BI-RADS-1: Negative. The [employer] recommends annual screening mammography beginning at age 40 for women with average risk of breast cancer. ELECTRONICALLY SIGNED: Manuela Campa M.D. on 01/21/2025 at 05:12:57 PM PT Interpreting Station ID: [id number]
--- NOTE | 2025-01-21 11:37 | DI.RAD.S_ITS ---
PROCEDURE: XR DEXA AXIAL SKELETON INDICATIONS: SCREENING COMPARISON: [facility], MARISEL, XR DEXA AXIAL SKELETON, 10/16/2022, 12:35. FINDINGS: Lumbar Spine: Bone mineral density 0.913 g/cm2, T score -1.2 osteopenia, change from previous-1.2%. Left Femoral Neck: Bone mineral density is 0.759 g/cm2, T score -0.8, normal, change from previous 7.1%, significant. Left Hip: Bone mineral density 0.947 g/cm2, T score 0.0, normal, change from previous 3.0%, significant. Fracture Risk Calculation (when applicable): 10-year fracture risk of a major osteoporotic fracture 4.5 percent and of a hip fracture 0.4 percent. (T score greater or equal to -1.0 to: NORMAL) (T score from -1.1 to -2.4: OSTEOPENIA) (T score less than or equal to -2.5: OSTEOPOROSIS) IMPRESSION: Osteopenia elevates the patient's 10 year fracture risk as described. Significant interval increase in left hip bone mineral density compared to prior. Follow-up guidelines as follows: Osteoporosis: Consider a repeat DEXA and Vertebral Fracture Assessment (VFA) exam in 2 years or sooner if medically necessary, to reassess this patient's status. Osteopenia: Consider a repeat DEXA in 2-3 years to reassess this patient's status, or if there is a new clinical indication. Normal: Consider a repeat DEXA in 5 years or sooner, or if there is a new clinical indication. All treatment decisions require clinical judgment and consideration of individual patient factors, including patient preferences, comorbidities, previous drug use, risk factors not captured in the FRAX model (e.g., frailty, falls, vitamin D deficiency, increased bone turnover, interval significant decline in bone density ) and possible under- or over-estimation of fracture risk by FRAX. In addition, the NOF Guide recommends that FDA-approved medical therapies be considered in postmenopausal women and men age >= 50 years with a: * Hip or vertebral (clinical or morphometric) fracture * T-score of <=-2.5 at the spine or hip * Ten-year fracture probability by FRAX of >= 3% for hip fracture or >=20% for major osteoporotic fracture. Dictated by: Mabel Florian M.D. on 01/23/2025 at 22:30 Approved by: Mabel Florian M.D. on 01/23/2025 at 22:32
--- OUTSIDE RECORDS SUMMARY | 2025-01-23 16:08 | XMS_ITS | Clinical Summary ---
Author Organization [facility] Address [address] [place] [address] Phone [phone] Care Team Providers Care Branch Billing Payroll Clerk Name Role Phone Tanja Ortega MD Primary Care Provider Allergies No known active allergies Medications * This document contains information received from the source organization and may not represent a complete record from that organization. cetirizine (ZyrTEC) 5 MG tablet Take 10 mg by mouth once per day. Active simvastatin (Zocor) 40 MG tabletIndications:Pure hypercholesterolemia Take 1 tablet (40 mg) by mouth at bedtime. 90 tablet 3 12/26/19 24 Active Spacer/Aero-Holding [place]OptiChamber [place] [facility] [place] 25 Active fluticasone furoate (Arnuity Ellipta) 200 MCG/ACT inhaler Inhale 1 puff Daily. Rinse mouth with water after use to reduce aftertaste and incidence of candidiasis. Do not swallow. 1 each 05/20/19 25 2025 Active celecoxib (CeleBREX) 200 MG capsule Take 1 capsule (200 mg) by mouth once per day. 90 capsule 1 5 2:59 PM PDT 11/11/19 25 Active gabapentin (Neurontin) 300 MG capsule Take 1 capsule (300 mg) by mouth as needed at bedtime (pain). 90 capsule 1 5 2:59 PM PDT 11/11/19 25 Active albuterol HFA 90 mcg/act inhalerIndications:Acut e cough Inhale 2 puffs every 4 (four) hours if needed for wheezing. 18 g 3 5 2:59 PM PDT 11/11/19 25 Active Active Problems Problem Noted Date Diagnosed Date Obesity, unspecified 12/09/2024 Assessment & Plan (12/09/2024 6:18 PM PDT): Counseled on diet and weight loss Pain of left lower extremity 11/10/2024 Assessment & Plan (12/09/2024 6:18 PM PDT): Discussed differential diagnosis including lumbar radiculopathy and greater trochanteric bursitis suspect greater trochanteric bursitis. - The left leg pain is likely due to bursitis, characterized by inflammation of the bursa and a tight iliotibial band. - Advised to sleep with a pillow between her legs, avoid sleeping on the affected side, apply ice twice daily, and perform stretching exercises. - Gabapentin will be refilled to aid sleep, and Celebrex will be restarted. If there is no improvement, physical therapy will be considered. Orders: Recall for Future Care - 12 Months; Future Recall for Future Care - 6 Months; Future Comprehensive Metabolic Panel (CMP); Future Lipid Panel w/Reflex to Direct LDL; Future Glycohemoglobin (A1C); Future Mild intermittent asthma without complication Assessment & Plan (12/09/2024 6:18 PM PDT): Continue arnuity Hasn't used inhaler - Her asthma is well-managed with Arnuity Ellipta 200 mcg daily. - A refill for her rescue inhaler will be provided. Orders: Recall for Future Care - 12 Months; Future Recall for Future Care - 6 Months; Future Comprehensive Metabolic Panel (CMP); Future Lipid Panel w/Reflex to Direct LDL; Future Glycohemoglobin (A1C); Future Assessment & Plan (05/19/2024 8:29 PM PDT): Orders: Comprehensive Metabolic Panel (CMP); Future Glycohemoglobin (A1C); Future CBC (Complete Blood Count), w/Auto Differential; Future Lipid Panel w/Reflex to Direct LDL; Future TSH & FREE T4 REFLEX; Future Vitamin D 25 Hydroxy; Future Assessment & Plan (04/07/2024 7:59 PM PST): Reviewed CHEST X-RAY and PFT Will start ICS, precautions given. Lengthy discussion of rationale. Encouraged rinsing with alcohol-containing mouthwash. Follow up in 6 weeks and oxana then or sooner if concerns Albuterol as needed Orders: fluticasone (Flovent) 110 MCG/ACT inhaler; Inhale 1 puff 2 (two) times a day. Rinse mouth with water after use to reduce aftertaste and incidence of candidiasis. Do not swallow. Plantar fasciitis, bilateral 09/11/2023 Assessment & Plan (12/09/2024 6:18 PM PDT): No current symptoms Orders: Recall for Future Care - 12 Months; Future Recall for Future Care - 6 Months; Future Comprehensive Metabolic Panel (CMP); Future Lipid Panel w/Reflex to Direct LDL; Future Glycohemoglobin (A1C); Future Assessment & Plan (09/11/2023 12:21 PM PDT): Discussed ice, stretching and demonstrated, gel inserts, no barefoot Slight fallen arches If not improving refer for orthotics, podiatry Impaired glucose tolerance 09/11/2023 Assessment & Plan (12/09/2024 6:18 PM PDT): Hemoglobin A1c improved. Will continue to monitor. If worsens will treat with metformin likely. Patient counseled on options and questions answered Orders: Recall for Future Care - 12 Months; Future Recall for Future Care - 6 Months; Future Comprehensive Metabolic Panel (CMP); Future Lipid Panel w/Reflex to Direct LDL; Future Glycohemoglobin (A1C); Future Assessment & Plan (05/19/2024 8:29 PM PDT): Orders: Comprehensive Metabolic Panel (CMP); Future Glycohemoglobin (A1C); Future CBC (Complete Blood Count), w/Auto Differential; Future Lipid Panel w/Reflex to Direct LDL; Future TSH & FREE T4 REFLEX; Future Vitamin D 25 Hydroxy; Future Assessment & Plan (03/19/2024 6:18 PM PST): Labs and follow-up OXANA in 1 to 2 months Assessment & Plan (09/11/2023 12:39 PM PDT): New. Very mild. Counseled on diet and exercise. Will recheck with next labs in 6 months. Vitiligo 01/17/2023 Assessment & Plan (12/09/2024 6:18 PM PDT): Slightly increased On left torso Discussed options including dermatology and will refer to [facility] Orders: Referral to Dermatology; Future Recall for Future Care - 12 Months; Future Recall for Future Care - 6 Months; Future Comprehensive Metabolic Panel (CMP); Future Lipid Panel w/Reflex to Direct LDL; Future Glycohemoglobin (A1C); Future Assessment & Plan (09/11/2023 12:20 PM PDT): Slightly increased On left torso Discussed options including dermatology and patient prefers monitoring for now Assessment & Plan (01/17/2023 1:54 PM PST): Discussed the benign nature of this and patient is reassured. We will continue to monitor and if she is finding more evidence then we could consider dermatologic evaluation. Advanced directives, counseling/discussion 10/03 Assessment & Plan (12/09/2024 6:18 PM PDT): Discussed with patient and daughter Reviewed need for dpoa and POLST form. given reviewed and filled out today. Patient prefers full code. Orders: Recall for Future Care - 12 Months; Future Recall for Future Care - 6 Months; Future Comprehensive Metabolic Panel (CMP); Future Lipid Panel w/Reflex to Direct LDL; Future Glycohemoglobin (A1C); Future Assessment & Plan (09/11/2023 12:35 PM PDT): Discussed with patient and daughter Reviewed need for dpoa and POLST form. given reviewed and filled out today. Patient prefers full code. Assessment & Plan (10/03/2022 9:55 AM PDT): Discussed with patient and daughter Reviewed need for dpoa Hearing loss 12/16/2021 Assessment & Plan (12/09/2024 6:18 PM PDT): Discussed referral for hearing test, referral placed Orders: Referral to ENT; Future Recall for Future Care - 12 Months; Future Recall for Future Care - 6 Months; Future Comprehensive Metabolic Panel (CMP); Future Lipid Panel w/Reflex to Direct LDL; Future Glycohemoglobin (A1C); Future Assessment & Plan (09/11/2023 12:36 PM PDT): No current problems Assessment & Plan (10/03/2022 8:16 PM PDT): No current problems Varicose veins of left lower extremity Assessment & Plan (12/09/2024 6:18 PM PDT): No current symptoms encouraged compression stockings Orders: Recall for Future Care - 12 Months; Future Recall for Future Care - 6 Months; Future Comprehensive Metabolic Panel (CMP); Future Lipid Panel w/Reflex to Direct LDL; Future Glycohemoglobin (A1C); Future Assessment & Plan (05/19/2024 8:29 PM PDT): Orders: Comprehensive Metabolic Panel (CMP); Future Glycohemoglobin (A1C); Future CBC (Complete Blood Count), w/Auto Differential; Future Lipid Panel w/Reflex to Direct LDL; Future TSH & FREE T4 REFLEX; Future Vitamin D 25 Hydroxy; Future Assessment & Plan (09/11/2023 12:37 PM PDT): Discussed compression stockings. I do not think this is contributing to the plantar fasciitis. I do not think she is having symptoms. Assessment & Plan (10/03/2022 10:02 AM PDT): No problems Vitamin D deficiency 08/06/2020 Assessment & Plan (12/09/2024 6:18 PM PDT): Improved. Continue with vitamin D supplementation Orders: Recall for Future Care - 12 Months; Future Recall for Future Care - 6 Months; Future Comprehensive Metabolic Panel (CMP); Future Lipid Panel w/Reflex to Direct LDL; Future Glycohemoglobin (A1C); Future Assessment & Plan (05/19/2024 8:29 PM PDT): Orders: Comprehensive Metabolic Panel (CMP); Future Glycohemoglobin (A1C); Future CBC (Complete Blood Count), w/Auto Differential; Future Lipid Panel w/Reflex to Direct LDL; Future TSH & FREE T4 REFLEX; Future Vitamin D 25 Hydroxy; Future Assessment & Plan (09/11/2023 12:37 PM PDT): Will check with next labs Assessment & Plan (01/17/2023 1:55 PM PST): We will check vitamin D with next labs Assessment & Plan (10/03/2022 10:01 AM PDT): Improved at last check Check dexa Continue supplement Osteopenia 07/02/2020 Assessment & Plan (12/09/2024 6:18 PM PDT): Bone density ordered Orders: DEXA bone density; Future Recall for Future Care - 12 Months; Future Recall for Future Care - 6 Months; Future Comprehensive Metabolic Panel (CMP); Future Lipid Panel w/Reflex to Direct LDL; Future Glycohemoglobin (A1C); Future Assessment & Plan (09/11/2023 12:36 PM PDT): Reviewed dexa Continue calcium in diet, vit d Increase weight bearing exercise Repeat dexa in 2 years Assessment & Plan (01/17/2023 11:27 AM PST): Reviewed dexa Continue calcium in diet, vit d Increase weight bearing exercise Repeat dexa in 2 years Assessment & Plan (10/03/2022 10:01 AM PDT): Check dexa Continue supplement BMI 34.0-34.9,adult 06/17/2020 Assessment & Plan (12/09/2024 6:18 PM PDT): No change. Counseled on diet and exercise Assessment & Plan (09/11/2023 12:36 PM PDT): Will work on diet and weight loss. Reviewed labs. Reviewed mildly elevated hemoglobin A1c. Discussed dietary changes Assessment & Plan (01/17/2023 1:55 PM PST): Counseled on diet and exercise Assessment & Plan (10/03/2022 8:16 PM PDT): Work at diet, exercise and weight loss Asymptomatic postmenopausal status 06/17/2020 Assessment & Plan (12/09/2024 6:18 PM PDT): No current symptoms Orders: Recall for Future Care - 12 Months; Future Recall for Future Care - 6 Months; Future Comprehensive Metabolic Panel (CMP); Future Lipid Panel w/Reflex to Direct LDL; Future Glycohemoglobin (A1C); Future DJD (degenerative joint disease), lumbosacral Assessment & Plan (12/09/2024 6:18 PM PDT): Overall stable. Will continue with symptomatic treatment and restart gabapentin and Celebrex Orders: Recall for Future Care - 12 Months; Future Recall for Future Care - 6 Months; Future Comprehensive Metabolic Panel (CMP); Future Lipid Panel w/Reflex to Direct LDL; Future Glycohemoglobin (A1C); Future Assessment & Plan (09/11/2023 12:36 PM PDT): No current symptoms. Discussed the importance of aerobic fitness core strengthening excetra. Assessment & Plan (10/03/2022 8:15 PM PDT): No current problems Foraminal stenosis of lumbar region 04/15/2020 Assessment & Plan (12/09/2024 6:18 PM PDT): Overall stable. Will restart gabapentin as this may be a component in her left leg pain. Will restart Celebrex 2 she will call if her symptoms are not improving. Orders: Recall for Future Care - 12 Months; Future Recall for Future Care - 6 Months; Future Comprehensive Metabolic Panel (CMP); Future Lipid Panel w/Reflex to Direct LDL; Future Glycohemoglobin (A1C); Future Assessment & Plan (09/11/2023 12:36 PM PDT): No current symptoms Assessment & Plan (01/17/2023 1:56 PM PST): Patient had benefit from steroid injection briefly. We discussed options of going back to physical therapy versus referral back to Dr. Burden to consider further injections or nerve ligation. Patient prefers referral back to Dr. Burden. No concerning neurologic symptoms or things on exam at this time. Assessment & Plan (10/03/2022 10:04 AM PDT): No current symptoms Pure hypercholesterolemia 04/15/2020 Assessment & Plan (12/09/2024 6:18 PM PDT): Discussed low-cholesterol diet, minimizing processed foods. Discussed exercise and the role in lowering cholesterol. Risks and benefits of statin therapy discussed, including ASCVD risk reduction. Discussed risks of hyperlipidemia, including in setting of DM. -Continue current regimen -Recheck labs in 6 months or sooner with any concerns -Continue with same statin Orders: Recall for Future Care - 12 Months; Future Recall for Future Care - 6 Months; Future Comprehensive Metabolic Panel (CMP); Future Lipid Panel w/Reflex to Direct LDL; Future Glycohemoglobin (A1C); Future Assessment & Plan (05/19/2024 8:29 PM PDT): Patient will do labs in 3 months and see me back after for OXANA Orders: Comprehensive Metabolic Panel (CMP); Future Glycohemoglobin (A1C); Future CBC (Complete Blood Count), w/Auto Differential; Future Lipid Panel w/Reflex to Direct LDL; Future TSH & FREE T4 REFLEX; Future Vitamin D 25 Hydroxy; Future Assessment & Plan (04/07/2024 7:59 PM PST): Will do labs and follow-up OXANA. Assessment & Plan (03/19/2024 6:18 PM PST): Patient will do labs and follow-up OXANA in 1 to 2 months Assessment & Plan (09/11/2023 9:04 AM PDT): Cholesterol well controlled and improved. Continue with same simvastatin 40 mg daily. We will recheck in 6 months. Assessment & Plan (01/17/2023 1:59 PM PST): Cholesterol well controlled and improved. Continue with same simvastatin 40 mg daily. We will recheck in 6 months. Assessment & Plan (10/03/2022 10:00 AM PDT): Labs and follow up in december Dry eye syndrome, bilateral 01/02/2020 Assessment & Plan (12/09/2024 6:18 PM PDT): Continue with current treatment Orders: Recall for Future Care - 12 Months; Future Recall for Future Care - 6 Months; Future Comprehensive Metabolic Panel (CMP); Future Lipid Panel w/Reflex to Direct LDL; Future Glycohemoglobin (A1C); Future Assessment & Plan (09/11/2023 12:36 PM PDT): Continue per ophthalmology Assessment & Plan (01/17/2023 1:55 PM PST): Doing much better since she had the lacrimal duct plugs placed Assessment & Plan (10/03/2022 10:00 AM PDT): Improved with plugs and eye drops Well adult health check 11/14/2019 Assessment & Plan (12/09/2024 6:18 PM PDT): Mammo within normal limits, due 01/27 Dexa osteopenia, repeat 10/27, will order now and do at same time as 01/27 Colonoscopy repeat 2030 OXANA done today Orders: Recall for Future Care - 12 Months; Future Recall for Future Care - 6 Months; Future Comprehensive Metabolic Panel (CMP); Future Lipid Panel w/Reflex to Direct LDL; Future Glycohemoglobin (A1C); Future Assessment & Plan (09/11/2023 12:19 PM PDT): Mammo within normal limits, due in 01/26 Dexa osteopenia, repeat 10/27 Colonoscopy repeat 2030 Had flu, covid and rsv vaccines Assessment & Plan (01/17/2023 1:55 PM PST): Mammo within normal limits Dexa osteopenia Colonoscopy repeat 2030 Had flu, covid and rsv vaccines on sunday Assessment & Plan (10/03/2022 8:16 PM PDT): Mammo in 12/25 Dexa too and follow up after Get mammogram and dexa ( bone density). You schedule appointment at radiology once you have insurance approval and our account specialist will call you for this Get fasting labs Appointment with me in january to review Resolved Problems Problem Noted Date Diagnosed Date Resolved Date Body mass index 35.0-35.9, adult 11/05/2024 12/09/2024 Acute cough 03/19/2024 11/10/2024 Assessment & Plan (05/19/2024 8:29 PM PDT): Patient had upper respiratory infection and then worsening in underlying reactive airway disease. She is overall doing markedly better. She is on Arnuity Ellipta 100 mcg inhalation daily. She is still needing the albuterol inhaler more than twice weekly so we will increase this dosing to 200 mcg daily. Discussed side effects. Discussed signs symptoms of concern and questions answered. She will call with any concerns. Albuterol was refilled as well. Reviewed her previous x-ray and PFTs. Follow-up in 3 months or sooner with concerns. She will continue gargling with alcohol-containing mouthwash after using. Orders: albuterol HFA 90 mcg/act inhaler; Inhale 2 puffs every 4 (four) hours if needed for wheezing. Comprehensive Metabolic Panel (CMP); Future Glycohemoglobin (A1C); Future CBC (Complete Blood Count), w/Auto Differential; Future Lipid Panel w/Reflex to Direct LDL; Future TSH & FREE T4 REFLEX; Future Vitamin D 25 Hydroxy; Future Assessment & Plan (04/07/2024 7:59 PM PST): Improved. Infection resolved but underlying asthma. Reviewed CHEST X-RAY and PFT Will start ICS, precautions given. Lengthy discussion of rationale. Encouraged rinsing with alcohol-containing mouthwash. Follow up in 6 weeks and oxana then or sooner if concerns Albuterol as needed Refill Shady Yost with goal that she will not need these at follow-up. Orders: benzonatate (Tessalon) 200 MG capsule; Take 1 capsule (200 mg) by mouth 3 (three) times a day as needed for cough. Do not crush or chew. Assessment & Plan (03/19/2024 6:18 PM PST): Concern for pneumonia. Possible bronchitis sinusitis. Go to [facility] and get a chest x-ray now I am putting you on antibiotic, azithromycin that can cause diarrhea, take with food and probiotic I am giving you 2 cough medicine: tessalon perlcristhian take 1 three x a day (nonsedating); cough syrup take at night because it can make you drowsy. I am also putting you on prednisone for 5 days. Take with food. Can upset stomach or make difficulty sleeping but it will help with wheezing and cough See me back in 2 weeks On reexamination may consider doing pulmonary function test. Orders: XR chest 2 views; Future azithromycin (Zithromax) 250 MG tablet; Take 2 tabs (500 mg) by mouth today, than 1 daily for 4 days. predniSONE (Deltasone) 20 MG tablet; Take 2 tablets by mouth for 2 days and then 1 tablet by mouth with food daily for 3 days and stop benzonatate (Tessalon) 200 MG capsule; Take 1 capsule (200 mg) by mouth 3 (three) times a day as needed for cough. Do not crush or chew. guaiFENesin-codeine (Robitussin-AC) 100-10 MG/5ML syrup; Take 5 mL by mouth 4 (four) times a day as needed for cough for up to 5 days. Dermatitis, contact 07/04/2022 09/11/19 Assessment & Plan (10/03/2022 10:01 AM PDT): resolved Dermatitis, seborrheic 07/04/202211/10 Assessment & Plan (09/11/2023 12:35 PM PDT): No current symptoms Assessment & Plan (10/03/2022 8:16 PM PDT): No current symptoms now. Refills on ketoconazole to use as needed Breast pain, right 08/02/2021 3 Dermatitis 07/07/2021 10/03/2022 Encounters Date Type Department Care Team Description 11/10/2024 10:30 AM PDT Office Visit [facility] [address] [place] [address] [place] [phone] Tanja Ortega MD Well adult health check (Primary Dx); Pain of left lower extremity; Pure hypercholesterolemia; Plantar fasciitis, bilateral; Vitiligo; Vitamin D deficiency; Varicose veins of left lower extremity, unspecified whether complicated; Advanced directives, counseling/discussion; Asymptomatic postmenopausal status; Body mass index 35.0-35.9, adult; DJD (degenerative joint disease), lumbosacral; Dry eye syndrome, bilateral; Impaired glucose tolerance; Hearing loss, unspecified hearing loss type, unspecified laterality; Foraminal stenosis of lumbar region; Osteopenia, unspecified location; Mild intermittent asthma without complication (HHS/HCC); BMI 34.0-34.9,adult; Class 1 obesity with body mass index (BMI) of 34.0 to 34.9 in adult, unspecified obesity type, unspecified whether serious comorbidity present; Severe obesity (BMI 35.0-39.9) with comorbidity (CMS/HCC V28); Thyroid disorder screen; Acute cough 11/05/2024 Results Follow-Up [address] [place] [id number] Tanja Ortega MD Comprehensive Metabolic Panel (CMP), Glycohemoglobin (A1C), CBC (Complete Blood Count), w/Auto Differential, Additional followed-up results: 3 11/05/2024 Diagnosis Code Refinement [address] [place] [phone] Tanja Ortega MD from Last 3 Months Immunizations Immunization Administration Dates Next Due Flu Vaccine, PRESERVATIVE FREE, HIGH DOSE 2021,03/06/2021,01/06/2020 Flu Vaccine, PRESERVATIVE FR EE, Quadrivalent 12/19/2017 Flu Vaccine, PRESERVATIVE FR EE, trivalent, split virus 12/24/2016,12/14/2015,12/26/2011 Flu vaccine, HIGH DOSE, triv alent, preservative free 01/14/2023 Influenza, trivalent, adjuvanted 12/03/2023 Pfizer SARS-COV-2 Biv Booster Vaccination 2022 Pneumococcal Conjugate PCV 20 12/16/2021 Pneumococcal Polysaccharide PPSV23 08/09/2020 TD (adult), 2 Lf tetanus tox oid, preservative free, adsorbed 05/25/2003,05/22/1995 Tdap 04/19/2012,02/13/2011 Zoster, Recombinant 08/09/2020 Social History Tobacco Use Types Packs/Day Years Used Date Smoking Tobacco: Never Passive Smoke Exposure: Never Smokeless Tobacco: Never Tobacco Cessation:Counseling Given: Not Answered Alcohol Use Standard Drinks/Week Comments Never 0 (1 standard drink = 0.6 oz pur e alcohol) PHQ-2 Answer Date Recorded Patient Health Questionnaire-2 Score 0 11/10/2024 Comments No Sex and Gender Information Value Date Recorded Sex Assigned at Not on file Legal Sex Female 9:21 AM PDT Gender Identity Not on file Sexual Orientation Not on file Last Filed Vital Signs Vital Sign Reading Time Taken Comments Blood Pressure 124/72 11/10/2024 10:30 AM PDT Pulse 63 11/10/2024 10:30 AM PDT Temperature 36.6 C (97.9 F) 03/19/2024 12:32 PM PST Respiratory Rate - - Oxygen Saturation 97% 11/10/2024 10:30 AM PDT Inhaled Oxygen Concentration - - Weight 89.8 kg (198 lb) 11/10/2024 10:30 AM PDT Height 160.7 cm (5' 3.25) 11/10/2024 10:30 AM P DT Body Mass Index 34.8 11/10/2024 10:30 AM PDT Plan of Treatment Health Maintenance Due Date Last Done Comments CT Colonography 1954 FIT-DNA 1954 Sigmoidoscopy 1954 RSV Vaccination aged 60+ and Patients (1 - Risk 50-74 years 1-dose series) 01/19/2004 Zoster Vaccines (2 of 2) 10/04/2020 08/09/2020 FIT 01/16/2021 01/17/2020, 01/17/2020 DTaP/Tdap/Td Vaccines (3 - Td or Tdap) 04/19/2022 04/19/2012, 02/13/2011, 05/25/2003, Additional history exists COVID-19 Vaccine ( - 2024- season) 2024 12/03/2023, 01/11/2023, 05/17/2020 Influenza Vaccine (#1) 2024 , 01/14/2023, 12/16/2021, Additional history exists CMP 11/05/2025 11/05/2024, 07/0 04/2023, 01/10/2023, Additional history exists Lipid Panel 11/05/2025 11/05/2024, 07/0 04/2023, 01/10/2023, Additional history exists Prediabetes Screening A1c 11/05/20252024, 09/04/2023, 07/01/2021, Additional history exists Mammogram 01/16/2026 01/17/2024, 1108/2022, 12/17/2021, Additional history exists Bone Density Monitoring 10/17/2027 10/16/2022, 06/28 Colonoscopy 09/24/2030 09/24/2020 Colorectal Cancer Screening 09/24/2030 Hepatitis C Screening Completed 06/15/2020 Pneumococcal Vaccine: 50+ Years Completed 12/16/2021, 08/09/2020 Bone Density Scan Completed 10/16/2022, 06/28/2020 Diabetes Screening Discontinued 11/05/2024, 0 09/04/2023, 07/01/2021, Additional history exists HIB Vaccines Aged Out No longer eligi ble based on patient's age to complete this topic HPV Vaccines (No Doses Required) Completed Hepatitis A Vaccines Aged Out No long er eligible based on patient's age to complete this topic IPV Vaccines Aged Out No longer eligi ble based on patient's age to complete this topic Meningococcal Vaccine Aged Out No foreign juliet eligible based on patient's age to complete this topic Rotavirus Vaccines Aged Out No longer eligible based on patient's age to complete this topic Procedures Procedure Name Priority Date/Time Associated Diagnosis Comments MAMMOGRAM JARETT CONV 01/21/2025 VITAMIN D 25 HYDROXY Routine 11/05/2024 9:31 AM PDT Acute cough Pure hypercholesterolemi a Screening for deficiency anemia Thyroid disorder screen Vitamin D deficiency Varicose veins of left lower extremity, unspecified whether complicated Impaired glucose tolerance Mild intermittent asthma without complication (HHS/HCC) TSH & FREE T4 REFLEX Routine 11/05/2024 9:30 AM PDT Acute cough Pure hypercholesterolemi a Screening for deficiency anemia Thyroid disorder screen Vitamin D deficiency Varicose veins of left lower extremity, unspecified whether complicated Impaired glucose tolerance Mild intermittent asthma without complication (HHS/HCC) LIPID PANEL W/REFLEX TO DIRECT LDL Routine 11/05/2024 9:30 AM PDT Acute cough Pure hypercholesterolemi a Screening for deficiency anemia Thyroid disorder screen Vitamin D deficiency Varicose veins of left lower extremity, unspecified whether complicated Impaired glucose tolerance Mild intermittent asthma without complication (HHS/HCC) CBC (COMPLETE BLOOD COUNT), W/AUTO DIFFERENTIAL Routine 11/05/2024 9:30 AM PDT Acute cough Pure hypercholesterolemi a Screening for deficiency anemia Thyroid disorder screen Vitamin D deficiency Varicose veins of left lower extremity, unspecified whether complicated Impaired glucose tolerance Mild intermittent asthma without complication (HHS/HCC) GLYCOHEMOGLOBIN (A1C) Routine 11/05/2024 9:30 AM PDT Acute cough Pure hypercholesterolemi a Screening for deficiency anemia Thyroid disorder screen Vitamin D deficiency Varicose veins of left lower extremity, unspecified whether complicated Impaired glucose tolerance Mild intermittent asthma without complication (HHS/HCC) COMPREHENSIVE METABOLIC PANEL (CMP) Routine 11/05/2024 9:30 AM PDT Acute cough Pure hypercholesterolemi a Screening for deficiency anemia Thyroid disorder screen Vitamin D deficiency Varicose veins of left lower extremity, unspecified whether complicated Impaired glucose tolerance Mild intermittent asthma without complication (HHS/HCC) MAMMOGRAM JARETT CONV 01/17/2024 BONE DENSITY JARETT CONV 10/16/2022 COLORECTAL CANCER SCREENING JARETT CONV Routine 09/24/2020 11:59 PM PDT HEPATITIS C VIRUS (HCV) ANTIBODY SCREEN W/REFLEX TO QUANTITATIVE PCR AND GENOTYPING Routine 06/15/2020 10:34 AM PDT OCCULT BLOOD, IMMUNOASSAY, STOOL Routine 01/17/2020 12:00 AM PST from Last 3 Months or Most Recently Relevant to Health Maintenance Results * MAMMOGRAPHY (01/21/2025) Only the most recent of2 resultswithin the time period is included. Anatomical Region Laterality Modality Radiographic Vivian ging Narrative 01/21/2025 Ordered by an unspecified provider. us [employer] Provider IMG XR PROCEDURES Final Resul t * Vitamin D 25 Hydroxy (11/05/2024 9:31 AM PDT) Vitamin D 40.6 30.0 - 100.0 ng/mL [facility] Comment: Suggests deficiency: <19.0 ng/mL Suggests a relative insufficiency: 20.0 - 29.0 ng/mL Suggests a sufficient level: >30.0 ng/mL Potential intoxication: >100.0 ng/mL Vitamin D levels should be rechecked 3 months after the initiation of therapy. Blood levels of 25 Hydroxy Vitamin D vary with the extent of sun exposure. Values tend to be highest in late summer and lowest in spring. Values also tend to decrease with age due to decreased precursor synthesis in the skin. Blood (Blood Draw) 11/05/2024 9:31 AM PDT 11/05/2024 4:42 PM PDT Narrative [facility] - 11/06/2024 3:58 PM PDT Performed at [facility] Laboratory Services/[address], [address], [facility] [address]/CLIA# [id number] Specimen source: Blood Draw Tanja Ortega MD LAB BLOOD ORDERABLES Final R esult [facility] [address] [place] [address] * Lipid Panel w/Reflex to Direct LDL (11/05/2024 9:30 AM PDT) [facility] Cholesterol 154 0 - 199 mg/dL [facility] HDL 53 40 - 59 mg/dL N LAB Triglycerides 84 0 - 149 mg/dL [facility] LDL CHOLESTEROL 84 <99 mg/dL [facility] Non HDL Chol. (LDL+VLDL) 101 mg/dL [facility] Direct LDL Reflexed? No N LAB Blood Draw 11/05/2024 9:30 AM PDT 11/05/2024 4:42 PM PDT Narrative [facility] - 11/05/2024 5:54 PM PDT Performed at [facility] Laboratory Services/[facility] [address], [facility] [address]/CLIA# [id number] Specimen source: Blood Draw Fasting: Yes Hours Fasting: >13 Tanja Ortega MD LAB BLOOD ORDERABLES Final R esult Performing Organization Address [facility] Co de Phone Number [facility] [address] [place] [address] * TSH & FREE T4 REFLEX (11/05/2024 9:30 AM PDT) [facility] TSH 3.49 0.45 - 5.10 uIU/mL [facility] FREE T4 REFLEX No N LAB Blood Draw 11/05/2024 9:30 AM PDT 11/05/2024 4:42 PM PDT Narrative N LAB - 11/05/2024 5:19 PM PDT Performed at [facility] Laboratory Services/[facility] [address], [facility] [address]/CLIA# [id number] Specimen source: Blood Draw us Tanja Ortega MD LAB BLOOD ORDERABLES Final R esult [facility] [address] [place] [address] * (ABNORMAL) CBC (Complete Blood Count), w/Auto Differential (11/05/2024 9:30 AM PDT) [facility] Auto WBC 5.8 3.8 - 11.0 K/uL [facility] RED BLOOD CELL COUNT - AUTO 5.1 3.7 - 5.1 M/uL [facility] Hemoglobin 15.0 11.3 - 15.5 g/dL [facility] Hematocrit 45.2 34.0 - 46.0 % [facility] MCV 89.2 80.0 - 100.0 fL [facility] MCH 29.5 27.0 - 34.0 pg [facility] MCHC 33.1 32.0 - 35.5 g/dL [facility] RDW 14.0 11.0 - 15.5 % [facility] Platelets 187 150 - 400 K/uL [facility] Neutrophils Relative 47.5 % [facility] Lymphocytes Relative 40.8 % [facility] Monocytes Relative 6.4 % [facility] Eosinophils % 4.9 % [facility] Basophils Relative 0.4 % [facility] ABSOLUTE NEUTROPHILS 2.8 1.9 - 7.4 K/uL [facility] Lymphocytes Absolute 2.4 1.0 - 3.9 K/uL [facility] Monocytes Absolute 0.4 0.0 - 0.8 K/uL [facility] EOSINOPHIL, ABS K/UL 0.3(H) 0.0 - 0.2 K/uL N LAB ABSOLUTE BASOPHILS 0.0 0.0 - 0.2 K/uL N LAB Blood (Blood Draw) 11/05/2024 9:30 AM PDT 11/05/2024 4:42 PM PDT Narrative [facility] - 11/05/2024 5:59 PM PDT Performed at [facility] Laboratory Services/[address], [facility] [address]/CLIA# [id number] us Tanja Ortega MD LAB BLOOD ORDERABLES Final R esult [facility] [address] [place] [address] * (ABNORMAL) Glycohemoglobin (A1C) (11/05/2024 9:30 AM PDT) [facility] Hemoglobin A1C 5.9(H) 4.0 - 5.6 % N LAB Estimated Average Glucose 123 <154 mg/dL [facility] Comment: eAG is calculated from Hemoglobin A1c using ADA recommended formula. Blood (Blood Draw) 11/05/2024 9:30 AM PDT 11/05/2024 4:42 PM PDT Narrative [facility] - 11/05/2024 6:13 PM PDT Performed at [facility] Laboratory Services/[address], [facility] [address]/CLIA# [id number] Specimen source: Blood Draw Tanja Ortega MD LAB BLOOD ORDERABLES Final R esult [facility] [address] [place] [address] * Comprehensive Metabolic Panel (CMP) (11/05/2024 9:30 AM PDT) Sodium 142 135 - 145 mmol/L [facility] Potassium 4.7 3.5 - 5.3 mmol/L [facility] Chloride 107 99 - 109 mmol/L [facility] CO2 30 23 - 32 mmol/L [facility] Glucose 96 65 - 140 mg/dL [facility] Comment: Reference Ranges: Glucose, Fastin-99 mg/dL Glucose, Random: 65-140 mg/dL BUN 20 8 - 25 mg/dL [facility] Creatinine 0.73 0.50 - 1.00 mg/dL [facility] Calcium 9.2 8.5 - 10.2 mg/dL [facility] Total Protein 6.4 6.1 - 7.8 g/dL [facility] Albumin 4.1 3.5 - 5.0 g/dL [facility] GLOBULIN (SERUM) 2.4 g/dL [facility] A/G Ratio 1.7 Ratio [facility] AST 14 10 - 45 U/L [facility] ALT (SGPT) 12 10 - 65 U/L [facility] Alkaline Phosphatase 52 35 - 115 U/L [facility] Total Bilirubin 0.60 0.10 - 1.50 mg/dL [facility] eGFR >60 >60 mL/min/1.7 3m2 [facility] Comment: Single determination is not diagnostic of Chronic Kidney Disease(CKD). Confirm over a 3 month period. >=60 - Normal kidney function 30-59 - Stage 3 CKD 15-29 - Stage 4 CKD, consider nephrology consult <15 - Stage 5 CKD, kidney failure Reported eGFR is based on the MDRD Study equation. The laboratory is working to implement the new CKD-EPI 2020 equation that does not use a race coefficient. In the interim, to calculate eGFR based on the CKD-EPI 2020 equation, go to https://www.kidney.org/professionals/kdoqi/gfr_calculator/formula . Blood (Blood Draw) 11/05/2024 9:30 AM PDT 11/05/2024 4:42 PM PDT Narrative [facility] - 11/05/2024 5:54 PM PDT Performed at [facility] Laboratory Services/[facility] [address], [facility] [address]/CLIA# [id number] Specimen source: Blood Draw Fasting: Yes Hours Fasting: >13 Tanja Ortega MD LAB BLOOD ORDERABLES Final R esult Performing Organization Address City/[facility] Co de Phone Number [facility] [address] [place] [address] * (ABNORMAL) BONE DENSITY (10/16/2022) [facility] BONE DENSITY Osteopenia Anatomical Region Laterality Modality Radiographic Vivian ging Narrative 10/16/2022 Ordered by an unspecified provider. [employer] Provider IMG DXA PROCEDURES Edited Res ult - Final * COLORECTAL CANCER SCREENING (09/24/2020 11:59 PM PDT) [facility] HM Colonoscopy normal ATHEN A - LEGACY CONVERSION 09/24/2020 11:5 9 PM PDT Yasmin Waldrop LAB OBSERVATION METHODS Final Re sult Performing Organization Address [facility]/ZIP Co de Phone Number JARETT - LEGACY CONVERSION * HEPATITIS C (HCV) ANTIBODY SCREEN W/ REFLEX TO QUANT PCR AND GENOTYPING (06/15/2020 10:34 AM PDT) [facility] HEPATITIS C ANTIBODY, SERUM 0.1 0.0 - 0.9 JARETT - LEGACY CONVERSION 06/15/2020 10:3 4 AM PDT Yasmin Waldrop LAB BLOOD ORDERABLES Final Resul t JARETT - LEGACY CONVERSION * OCCULT BLOOD STOOL (FIT), IMMUNOASSAY (01/17/2020 12:00 AM PST) FECAL OCCULT BLOOD, iFOB Negative Negative JARETT - LEGACY CONVERSION 01/17/2020 us Yasmin Waldrop LAB STOOL ORDERABLES Final Resul t JARETT - LEGACY CONVERSION from Last 3 Months or Most Recently Relevant to Health Maintenance Insurance [facility] MEDICARE ADVANTAGE Advance Directives For more information, please contact: [phone] (8AM - 4:30 PM [place], 7 daysa week) * Full Code (Latest Code Status on File) Date Activated Date Inactivated Comments 11/10/2024 11:42 AM Care Teams Branch Billing Payroll Clerk Relationship Specialty Start Date End Date Tanja Ortega MD [address] [place] [address] [place] [address] PCP - General Family Medicine 10/20/22
--- OUTSIDE RECORDS SUMMARY | 2025-01-23 16:09 | XMS_ITS | Clinical Summary ---
Author Organization [facility] Address [address] [place] [address] Care Team Providers Care Departure Clerk Name Role Phone Pcp, None Selected Primary Care Provider Unavail able Allergies No known active allergies Medications simvastatin (ZOCOR) 40 mg tablet Take 40 mg by mouth nightly Active Active Problems No known active problems Encounters Date Type Department Care Team Description 12/05/2024 Telephone [facility] [address] [id number] Pcp, None Selected Referral from Last 3 Months Social History Tobacco Use Types Packs/Day Years Used Date Smoking Tobacco: Never Smokeless Tobacco: Never Alcohol Use Standard Drinks/Week Comments Never 0 (1 standard drink = 0.6 oz pur e alcohol) Comments Unknown Sex and Gender Information Value Date Recorded Sex Assigned at Not on file Legal Sex Female 9:55 AM PDT Gender Identity Not on file Sexual Orientation Not on file Last Filed Vital Signs Vital Sign Reading Time Taken Comments Blood Pressure 142/82 10/13/2020 9:47 AM PDT Pulse 61 10/13/2020 9:40 AM PDT Temperature 37.1 C (98.7 F) 10/13/2020 9:40 AM PDT Respiratory Rate - - Oxygen Saturation 99% 10/13/2020 9:40 AM PDT Inhaled Oxygen Concentration - - Weight 91.8 kg (202 lb 6.4 oz) 10/13/2020 9:40 A M PDT Height 162.6 cm (5' 4) 10/13/2020 9:40 AM PDT Body Mass Index 34.74 10/13/2020 9:40 AM PDT Plan of Treatment Health Maintenance Due Date Last Done Comments Bone Density Scan 1954 Depression Screening (PHQ-2) 1966 Colorectal Cancer Screening (Colonoscopy) 1999 Colorectal Cancer Screening (Fecal DNA) 1999 Fall Risk Screening 2019 Zoster Vaccines (2 of 2) 10/04/2020 08/09/2020 Colorectal Cancer Screening (FOBT) 01/16/2021 01/17/2020 Colorectal Cancer Screening Combined 01/16/2021 DTaP,Tdap,and Td Vaccines (3 - Td or Tdap) 04/19/2022 04/19/2012, 02/13/2011, 05/25/2003, Additional history exists COVID-19 Vaccine (3 - season) 2024 01/11/2023, 05/17/2020 Influenza Vaccine (#1) 2024 , 01/14/2023, 12/16/2021, Additional history exists RSV Patients Over 60 years OR qualifying ( Patients) (1 - 1-dose 75+ series) 2029 HM Pneumococcal Adult 50+ Completed 12/16/2021, 09/2020 HPV Vaccines Aged Out No longer eligi ble based on patient's age to complete this topic Hepatitis A Vaccines Aged Out No long er eligible based on patient's age to complete this topic Hepatitis B Vaccines Aged Out No long er eligible based on patient's age to complete this topic IPV Vaccines Aged Out No longer eligi ble based on patient's age to complete this topic MMR Vaccines Aged Out No longer eligi ble based on patient's age to complete this topic Insurance [employer] OTHER SELF INSURED WORKERS COMPENSATION Care Teams Departure Clerk Relationship Specialty Start Date End Date Pcp, None Selected PCP - General 06/19/24
== END ==
PROVIDERS: PCP Family Medicine; Referring Provider Family Medicine; Visit Provider Family Medicine
DX: Z12.31 Encounter for screening mammogram for malignant neoplasm of breast (principal); M85.89 Other specified disorders of bone density and structure, multiple sites; Z78.0 Asymptomatic menopausal state
CPT/HCPCS: 77063; 77067; 77080